=== PATIENT | female | born 1990 | race Caucasian/White ===

== ENCOUNTER → 2016-09-11 | Outpatient (CLI) | payer MEDICAID ==
[~2016-09-11] MED LIST: ALEVE220 MG PO; AMOXICOT500 MG PO; ATIVAN GENERIC 11 MG PO; BENADRYL25 M1 PO; BENTYL20 M1 PO; BENTYL20 MG PO; CLONIDINE HYDR0.1 MG PO; GABAPENTIN100 M1 PO; HYDROCODONE-APA1 TA2 PO; IMODIUM 2MG. CAP2 MG PO; KEFLEX 500MG.500 MG PO; MEDROL 4MG. DOSE4 MG PO; MELATONIN10 M2 PO; MELOXICAM7.5 MG PO; MINOCYCLINE 10100 MG PO; MOTRIN 600MG.600 MG PO; NICOTINE PATCH;21 MG TD; NORCO 325 MG-51 TAB PO; SULFAMETHOXAZOL1 TA6 PO; TYLENOL W/CODEI1 TA2 PO; ZOFRAN ODT4 MG PO
[2016-09-11 19:20] LABS: AMPHETAMINES/METAMPHETAMINES NEGATIVE ng/mL (<1000)
== END ==
LOC: LAB 17:46
PROVIDERS: Emergency Medicine
DX: Z79.899 Other long term (current) drug therapy (principal)

== ENCOUNTER 2017-05-01 06:38 | Emergency (ER) | payer MEDICAID ==
[~2017-05-01] VITALS: Ht 152.4 cm; Wt 51.3 kg
--- NOTE | 2017-05-01 06:56 | Emergency Room Report ---
History of Present Illness Time Seen by 06Vijaya Presenting Problem in Triage Pt arrived:Walked Presenting Problem:C/O RED SWOLLEN AREA TO RIGHT KNEE SINCE 04/26/17. 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 N Clinical Suspician of Infection? N Mental Status: 1 - Regular (Normal Baseline) Sepsis Risk:Low Sepsis Risk Have you (or family members/close friends) recently traveled outside the [place]? N If Yes, where/when: Have you had exposure to infectious disease within the past month? N TB? Other? Specify: Source patient, RN notes reviewed, family, old records Exam Limitations no limitations Comment reddned tender area on rt lower leg over the last few days Cardiac Chest Pain Chest pain indicative of cardiac No Timing/Duration this morning Severity moderate ALLERGIES Coded Allergies: No Known Allergies (05/19/16) Home Medications Active Scripts Dicyclomine HCl (Bentyl) 20 MG PO Q6HP PRN crampys #30 TAB Ref 1 Prov: 05/21/16 History Medical History General CAD? No Angina: No [place]: No Hypertension? No Hyperlipidemia? No CHF? No DVT? No PE? No COPD? No Asthma? No Anemia? No GERD? No Gastric ulcers? No GI Bleed? No Hernia? No Thyroid Problems? No Hypothyroidism? No CVA? No Seizures? No Diabetes? No Renal Insuffiency? No End Stage Renal Disease? No UTI? Yes Stones? No BPH? No GB Disease: No Nephritic Syndrome? No Asplenia? No Hepatitis? No Sickle Cell Disease? No Arthritis? No Migraines? No Cataracts? No Glaucoma? No MRSA? No HIV? No TB? No Anxiety? No Depression? No Cancer? No Site: COLITIS More? 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 Respiratory denies cough, denies shortness of breath Cardiovascular denies chest pain, denies syncope Gastrointestinal denies abdominal pain, denies diarrhea, denies vomiting Genitourinary denies: dysuria, frequency, hesitancy, hematuria. Musculoskeletal denies back pain, denies joint pain, denies joint swelling, denies neck pain Skin see HPI, other Psychiatric/Neurological denies headache, denies seizure Physical Exam Vital Signs Vital Signs Date Time Temp Pulse Resp B/P Pulse O2 O2 Flow FiO2 Ox Delivery Rate 05/01 0643 97.9 72 20 126/65 97 - WBC >12,000 or <4,000 or 10% bands? 2 or more SIRS Criteria Met? B/P:126/65 MAP:85 Creatinine >2.0? UA output<0.5ml/kg/hr for 2 hrs? Platelet count >100,000? Lactate >2.0mmol/1? INR >1.2 or PTT > than 60 sec? Evidence of Organ Dysfunction? Provider documented clinical suspician of infection? N Sepsis Criteria Count: 1 Sepsis Risk: Low Sepsis Risk General Appearance no apparent distress Eye Exam - bilateral eye PERRL, bilateral eye EOMI Ear, Nose, Throat normal ENT inspection Neck supple Respiratory Status No: respiratory distress. 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 No Results/Orders Orders Procedure Date/time Status CULTURE, WOUND 05/01 0704 Active Departure Departure Time of Disposition 07 Disposition DC Home or Self Care(routine) Clinical Impression Primary Impression: Cellulitis Qualifiers: Site of cellulitis: extremity Site of cellulitis of extremity: lower extremity Laterality: right Qualified Code: L03.115 - Cellulitis of right lower limb Condition STABLE Referrals Moshe AMADOR,Taran Barnard (Family) Patient Instructions DI for Methicillin-Resistant Staph Infection (MRSA) Additional Instructions use meds and see pcp for follow up Discharge Counseling Counseled pt/family regarding diagnosis, medications/RX, follow up needs Prescriptions Current Visit Scripts MUPIROCIN 2% (Bactroban Oint) 1 ERNESTO TP BID #1 TUBE SULFAMETHOXAZOLE/TRIMETHOPRIM (Sulfamethoxazole-Tmp Ds Tablet) 1 TAB PO BID #20 TAB ED Critical Care Critical Care No at 0708
--- NOTE | 2017-05-01 06:56 | Emergency Room Report ---
History of Present Illness Time Seen by 06Vijaya Presenting Problem in Triage Pt arrived:Walked Presenting Problem:C/O RED SWOLLEN AREA TO RIGHT KNEE SINCE 04/26/17. 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 N Clinical Suspician of Infection? N Mental Status: 1 - Regular (Normal Baseline) Sepsis Risk:Low Sepsis Risk Have you (or family members/close friends) recently traveled outside the [place]? N If Yes, where/when: Have you had exposure to infectious disease within the past month? N TB? Other? Specify: Source patient, RN notes reviewed, family, old records Exam Limitations no limitations Comment reddned tender area on rt lower leg over the last few days Cardiac Chest Pain Chest pain indicative of cardiac No Timing/Duration this morning Severity moderate ALLERGIES Coded Allergies: No Known Allergies (05/19/16) Home Medications Active Scripts Dicyclomine HCl (Bentyl) 20 MG PO Q6HP PRN crampys #30 TAB Ref 1 Prov: 05/21/16 History Medical History General CAD? No Angina: No [place]: No Hypertension? No Hyperlipidemia? No CHF? No DVT? No PE? No COPD? No Asthma? No Anemia? No GERD? No Gastric ulcers? No GI Bleed? No Hernia? No Thyroid Problems? No Hypothyroidism? No CVA? No Seizures? No Diabetes? No Renal Insuffiency? No End Stage Renal Disease? No UTI? Yes Stones? No BPH? No GB Disease: No Nephritic Syndrome? No Asplenia? No Hepatitis? No Sickle Cell Disease? No Arthritis? No Migraines? No Cataracts? No Glaucoma? No MRSA? No HIV? No TB? No Anxiety? No Depression? No Cancer? No Site: COLITIS More? 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 Respiratory denies cough, denies shortness of breath Cardiovascular denies chest pain, denies syncope Gastrointestinal denies abdominal pain, denies diarrhea, denies vomiting Genitourinary denies: dysuria, frequency, hesitancy, hematuria. Musculoskeletal denies back pain, denies joint pain, denies joint swelling, denies neck pain Skin see HPI, other Psychiatric/Neurological denies headache, denies seizure Physical Exam Vital Signs Vital Signs Date Time Temp Pulse Resp B/P Pulse O2 O2 Flow FiO2 Ox Delivery Rate 05/01 0643 97.9 72 20 126/65 97 - WBC >12,000 or <4,000 or 10% bands? 2 or more SIRS Criteria Met? B/P:126/65 MAP:85 Creatinine >2.0? UA output<0.5ml/kg/hr for 2 hrs? Platelet count >100,000? Lactate >2.0mmol/1? INR >1.2 or PTT > than 60 sec? Evidence of Organ Dysfunction? Provider documented clinical suspician of infection? N Sepsis Criteria Count: 1 Sepsis Risk: Low Sepsis Risk General Appearance no apparent distress Eye Exam - bilateral eye PERRL, bilateral eye EOMI Ear, Nose, Throat normal ENT inspection Neck supple Respiratory Status No: respiratory distress. 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 No Results/Orders Orders Procedure Date/time Status CULTURE, WOUND 05/01 0704 Active Departure Departure Time of Disposition 07 Disposition DC Home or Self Care(routine) Clinical Impression Primary Impression: Cellulitis Qualifiers: Site of cellulitis: extremity Site of cellulitis of extremity: lower extremity Laterality: right Qualified Code: L03.115 - Cellulitis of right lower limb Condition STABLE Referrals Moshe AMADOR,Taran Barnard (Family) Patient Instructions DI for Methicillin-Resistant Staph Infection (MRSA) Additional Instructions use meds and see pcp for follow up Discharge Counseling Counseled pt/family regarding diagnosis, medications/RX, follow up needs Prescriptions Current Visit Scripts MUPIROCIN 2% (Bactroban Oint) 1 ERNESTO TP BID #1 TUBE SULFAMETHOXAZOLE/TRIMETHOPRIM (Sulfamethoxazole-Tmp Ds Tablet) 1 TAB PO BID #20 TAB ED Critical Care Critical Care No at 0708
[2017-05-01] MEDS ORDERED: BACTROBAN2% TP (07:08)
[2017-05-01] MEDS ORDERED: SEPTRA DS 800 M1 TAB PO (07:08)
[2017-05-01 07:20] VITALS: BP 126/65
== END 2017-05-01 07:20 | disposition home or self-care (01) ==
LOC: ER 06:38
DX: L03.115 Cellulitis of right lower limb (principal)

== ENCOUNTER 2017-05-04 19:13 | Emergency (ER) | payer MEDICAID ==
[~2017-05-04] VITALS: Ht 152.4 cm; Wt 51.3 kg
[~2017-05-04 19:13] MED LIST changes: +BACTROBAN2% TP; +SEPTRA DS 800 M1 TAB PO
--- NOTE | 2017-05-04 19:42 | Urgent Treatment Center Report ---
History of Present Issue Date/Time Seen by Provider 05/04/171934 Visit Reason Pt arrived:Walked Presenting Problem:PT WAS SEEN IN ER SUNDAY FOR AREA ON LEFT KNEE. STATES SHE IS AFRAID INFECTION IS SPREADING Location if Accident: Onset of symptoms date/time:/ or onset unknown for:MEDICAL HX UNKNOWN Have you (or family members/close friends) recently traveled outside the [place]? N If Yes, where/when: Have you had exposure to infectious disease within the past month? TB? Other? Specify: Patient state that she was seen in the ER on Sunday for infection on her right knee area and wound culture was obtained and sent State that she is afraid that the infection is spreading State thats she has also not got the results from her culture to make sure that she is on the right medication ALLERGIES Coded Allergies: No Known Allergies (05/19/16) Home Medications Active Scripts MUPIROCIN 2% (Bactroban Oint) 1 ERNESTO TP BID #1 TUBE Prov: 05/01/17 SULFAMETHOXAZOLE/TRIMETHOPRIM (Sulfamethoxazole-Tmp Ds Tablet) 1 TAB PO BID #20 TAB Prov: 05/01/17 Dicyclomine HCl (Bentyl) 20 MG PO Q6HP PRN crampys #30 TAB Ref 1 Prov: 05/21/16 History Medical History General CAD? No Angina: No [place]: No Hypertension? No Hyperlipidemia? No CHF? No DVT? No PE? No COPD? No Asthma? No Anemia? No GERD? No Gastric ulcers? No GI Bleed? No Hernia? No Thyroid Problems? No Hypothyroidism? No CVA? No Seizures? No Diabetes? No Renal Insuffiency? No UTI? Yes Stones? No BPH? No GB Disease: No Nephritic Syndrome? No Asplenia? No Hepatitis? Yes Sickle Cell Disease? No Arthritis? No Migraines? No Cataracts? No Glaucoma? No MRSA? No HIV? No TB? No Anxiety? No Depression? No Cancer? No Site: COLITIS More? 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 Family History Family HX Diabetes Yes CAD No Hypertension Yes Hyperlipidemia No Cancer Yes TB No Social History Smoking Hx Smoker: Current Every Day Smoker Tobacco: Yes Type Cigarettes Packs/day 1 1/2 - 2 Packs Alcohol Alcohol: Yes Review of Systems All Other Systems Reviewed and Negative Comment small red raised area on right knee Physical Exam Vital Signs Vital Signs Date Time Temp Pulse Resp B/P Pulse O2 O2 Flow FiO2 Ox Delivery Rate 05/04 1929 98.7 107 20 116/72 96 General Appearance normal appearance, WD/WN, no apparent distress Respiratory Status Yes: trachea midline, chest symmetrical, non tender chest. No: respiratory distress. 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 no warmth, no streaks, no redness Medical Decision Making LABS/Meds/Orders Pt receiving controlled substance in ED? No Progress [facility] Progress Notes Comment discussed culture results with patient and informed her that she was on right medication and that she needed to continue taking medication as previously prescribed Departure Departure Time of Disposition 1940 Disposition DC Home or Self Care(routine) Clinical Impression Primary Impression: Staph infection Condition STABLE Referrals Moshe AMADOR,Taran Barnard (Family) Patient Instructions DI for Staph Infection, Staph Infection Additional Instructions Take medication as prescribed Follow up with family doctor Return if needed Discharge Counseling Counseled pt/family regarding diagnosis, test results, medications/RX, home care, follow up needs at 1942
--- NOTE | 2017-05-04 19:42 | Urgent Treatment Center Report ---
History of Present Issue Date/Time Seen by Provider 05/04/171934 Visit Reason Pt arrived:Walked Presenting Problem:PT WAS SEEN IN ER SUNDAY FOR AREA ON LEFT KNEE. STATES SHE IS AFRAID INFECTION IS SPREADING Location if Accident: Onset of symptoms date/time:/ or onset unknown for:MEDICAL HX UNKNOWN Have you (or family members/close friends) recently traveled outside the [place]? N If Yes, where/when: Have you had exposure to infectious disease within the past month? TB? Other? Specify: Patient state that she was seen in the ER on Sunday for infection on her right knee area and wound culture was obtained and sent State that she is afraid that the infection is spreading State thats she has also not got the results from her culture to make sure that she is on the right medication ALLERGIES Coded Allergies: No Known Allergies (05/19/16) Home Medications Active Scripts MUPIROCIN 2% (Bactroban Oint) 1 ERNESTO TP BID #1 TUBE Prov: 05/01/17 SULFAMETHOXAZOLE/TRIMETHOPRIM (Sulfamethoxazole-Tmp Ds Tablet) 1 TAB PO BID #20 TAB Prov: 05/01/17 Dicyclomine HCl (Bentyl) 20 MG PO Q6HP PRN crampys #30 TAB Ref 1 Prov: 05/21/16 History Medical History General CAD? No Angina: No [place]: No Hypertension? No Hyperlipidemia? No CHF? No DVT? No PE? No COPD? No Asthma? No Anemia? No GERD? No Gastric ulcers? No GI Bleed? No Hernia? No Thyroid Problems? No Hypothyroidism? No CVA? No Seizures? No Diabetes? No Renal Insuffiency? No UTI? Yes Stones? No BPH? No GB Disease: No Nephritic Syndrome? No Asplenia? No Hepatitis? Yes Sickle Cell Disease? No Arthritis? No Migraines? No Cataracts? No Glaucoma? No MRSA? No HIV? No TB? No Anxiety? No Depression? No Cancer? No Site: COLITIS More? 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 Family History Family HX Diabetes Yes CAD No Hypertension Yes Hyperlipidemia No Cancer Yes TB No Social History Smoking Hx Smoker: Current Every Day Smoker Tobacco: Yes Type Cigarettes Packs/day 1 1/2 - 2 Packs Alcohol Alcohol: Yes Review of Systems All Other Systems Reviewed and Negative Comment small red raised area on right knee Physical Exam Vital Signs Vital Signs Date Time Temp Pulse Resp B/P Pulse O2 O2 Flow FiO2 Ox Delivery Rate 05/04 1929 98.7 107 20 116/72 96 General Appearance normal appearance, WD/WN, no apparent distress Respiratory Status Yes: trachea midline, chest symmetrical, non tender chest. No: respiratory distress. 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 no warmth, no streaks, no redness Medical Decision Making LABS/Meds/Orders Pt receiving controlled substance in ED? No Progress [facility] Progress Notes Comment discussed culture results with patient and informed her that she was on right medication and that she needed to continue taking medication as previously prescribed Departure Departure Time of Disposition 1940 Disposition DC Home or Self Care(routine) Clinical Impression Primary Impression: Staph infection Condition STABLE Referrals Moshe AMADOR,Taran Barnard (Family) Patient Instructions DI for Staph Infection, Staph Infection Additional Instructions Take medication as prescribed Follow up with family doctor Return if needed Discharge Counseling Counseled pt/family regarding diagnosis, test results, medications/RX, home care, follow up needs at 1942
[2017-05-04 19:44] VITALS: BP 116/72
== END 2017-05-04 19:46 | disposition home or self-care (01) ==
LOC: UTC 19:13
DX: L08.9 Local infection of the skin and subcutaneous tissue, unspecified (principal); B95.8 Unspecified staphylococcus as the cause of diseases classified elsewhere; F17.210 Nicotine dependence, cigarettes, uncomplicated

== ENCOUNTER 2017-05-07 17:07 | Emergency (ER) | payer MEDICAID ==
[~2017-05-07] VITALS: Ht 152.4 cm; Wt 51.3 kg
--- NOTE | 2017-05-07 19:02 | Urgent Treatment Center Report ---
History of Present Issue Date/Time Seen by Provider 05/07/17 1901 Visit Reason Pt arrived:Walked Presenting Problem:PT HAS HAD AN ABCESS ON HER RT KNEE X1 WEEK AND IS CURRENTLY ON BACTRIM. PT IS C/O WORSENING AND A RED STREAK UP THE RT THIGH Location if Accident: Onset of symptoms date/time:/ or onset unknown for:MEDICAL HX UNKNOWN Have you (or family members/close friends) recently traveled outside the [place]? N If Yes, where/when: Have you had exposure to infectious disease within the past month? TB? Other? Specify: c/o worsening redness and pain right anterior knee now with right knee swelling and red streak extending to right groin. Pt was seen in ER by PCP, Dr. Mesa, on 05/01. Dx abscess right knee. I&D. wound cx sent. Started on mupirocin ointment and bactrim. Returned to [facility] on 05/04 for wound care follow up and cx results. + Staph aureas susceptible to bactrim. Exam at that time "quarter size " and appeared to be improving. Enc. to complete bactrim. However last 48 hours, abscess getting larger, redness worse, right knee swollen and now red streaking extending proximally from knee up anterior thigh stopping at right groin. Amount of drainage from abscess has increased. "continous odell bloody drainage. I see thick white but it hasn't drained." Denies fever, aches, chills. Source patient Exam Limitations no limitations ALLERGIES Coded Allergies: No Known Allergies (05/19/16) Home Medications Active Scripts MUPIROCIN 2% (Bactroban Oint) 1 ERNESTO TP BID #1 TUBE Prov: 05/01/17 SULFAMETHOXAZOLE/TRIMETHOPRIM (Sulfamethoxazole-Tmp Ds Tablet) 1 TAB PO BID #20 TAB Prov: 05/01/17 Dicyclomine HCl (Bentyl) 20 MG PO Q6HP PRN crampys #30 TAB Ref 1 Prov: 05/21/16 History Medical History General CAD? No Angina: No ND: No Hypertension? No Hyperlipidemia? No CHF? No DVT? No PE? No COPD? No Asthma? No Anemia? No GERD? No Gastric ulcers? No GI Bleed? No Hernia? No Thyroid Problems? No Hypothyroidism? No CVA? No Seizures? No Diabetes? No Renal Insuffiency? No UTI? Yes Stones? No BPH? No GB Disease: No Nephritic Syndrome? No Asplenia? No Hepatitis? Yes Sickle Cell Disease? No Arthritis? No Migraines? No Cataracts? No Glaucoma? No MRSA? No HIV? No TB? No Anxiety? No Depression? No Cancer? No Site: COLITIS More? No Immunization HX DT/Tetanus UNKNOWN Flu Refused Pneumonia Refuses Surgical Hx Previous Surgery?Y BILATERAL EARTUBES TEETH CERVICAL ABLASION Family History Family HX Diabetes Yes CAD No Hypertension Yes Hyperlipidemia No Cancer Yes TB No Social History Smoking Hx Smoker: Current Every Day Smoker Tobacco: Yes Type Cigarettes Packs/day 1 1/2 - 2 Packs Alcohol Alcohol: Yes Review of Systems All Other Systems Reviewed and Negative Constitutional see HPI, denies malaise Musculoskeletal see HPI Skin see HPI Physical Exam Vital Signs Vital Signs Date Time Temp Pulse Resp B/P Pulse O2 O2 Flow FiO2 Ox Delivery Rate 05/07 2050 98.2 92 18 125/87 98 05/07 1734 98.2 92 18 125/87 98 General Appearance normal appearance, no apparent distress Respiratory Status No: respiratory distress. Cardiovascular no peripheral edema Peripheral Pulses Pulses normal Yes (DP/PT) Back gait abnormality (limp favoring rt ) Extremities limited range of motion (minimal reduction rt knee flex), swelling ( right anterior knee), mild tenderness generalized throughout rt knee but worse lateral lower aspect/location abscess Strength 5 Lower Ext (L), 5 Lower Ext (R) Neurologic alert Skin approx 2cm cutaneous abscess right anterior knee, lower lateral. 1mm open center, thin odell drainage. surrounding erythema covering entire anterior knee w/ red streak extending medial aspect anterior thigh stopping at right anterior groin, tender but no palpable lymphadenopathy Lymphatic no adenopathy Medical Decision Making LABS/Meds/Orders Pt receiving controlled substance in ED? No Results/Orders Laboratory Tests 05/07/171918: WBC 9.8, RBC 4.75, Hgb 14.0, Hct 41.4, MCV 87.0, RDW 12.5, Plt Count 251, MPV 6.8 L, Gran % 59.1, Gran # 5.8, Lymphocytes % 34.5, Monocytes % 4.2, Eosinophils % 2.0, Basophils % 0.3, Lymphocytes # 3.4, Monocytes # 0.4, Eosinophils # 0.2, Basophils # 0.0, PUBS MCHC 33.7, MCH 29.3 Current Medication Orders Sig/Marylou Start time Last Medication Dose Route Stop Time Status Admin Clindamycin Phosphate 0 .STK-MED ONE 05/07 2043 DC .ROUTE Clindamycin Phosphate 450 MG ONCE ONE 05/07 2030 DC 05/07 IM 05/07 Orders Procedure Date/time Status KNEE-3 VIEWS-RT 05/07 1915 Active CULTURE, WOUND 05/07 1915 Active C-REACTIVE PROTEIN 05/07 1915 Complete CBC WITH AUTO DIFF 05/07 1915 Complete XRAY/CT/US XRAY/CT/US XRAY knee (right) XR interpretation by reviewed by me (w/ Dr. Mesa, ER MD/PCP) Xray Results normal/NAD Consult MD Physician Consult 1 Consult/PCP ROSITA Alexandre Time Called 1909 Reason Pt. Condition Comments Discussed HPI and exam. Agrees repeat wound culture, add susceptible antibiotic, rule out joint infection w/ CBC, CRP and xray. FU with ortho or PCP tomorrow. Physician Consult 2 Consult/PCP Dr. Mesa, PCP and current ER MD Time Called 2019 Reason Pt. Condition (and to review xray) Comments Discussed HPI, current exam, labs, rvwd xray together. Wants to see pt in morning at office at 9am. no further treatment necessary tonight unless I want to give first dose of another antibiotic. Progress [facility] Progress Notes Date 05/07/17 Time 192 Comment lab and xray at Procedures Incision and Drainage Incision and Drainage Risks/benefits discussed with pt/guardian? Yes Problem type Abcess Location right anterior knee Size cm 2.0 Progress no further incision required, approx 1mm opening in center, draining slowly serosang drainage, w/ palpation moderate amount serosang drainage w/ occasional scant thick white; Departure Departure Time of Disposition 2024 Disposition DC Home or Self Care(routine) Clinical Impression Primary Impression: Abscess of right knee Secondary Impressions: Cellulitis Qualifiers: Site of cellulitis: extremity Site of cellulitis of extremity: lower extremity Laterality: right Qualified Code: L03.115 - Cellulitis of right lower limb Condition STABLE Referrals Moshe AMADOR,Taran Barnard (Family) per Dr. Mesa, show up at office at 9am. Tell them you were seen in [facility] this evening, I spoke to Dr. Mesa, he told you to be there at 9am. Patient Instructions DI for Cellulitis -- Adult, DI for Skin Abscess Additional Instructions * Warm compresses x15 minutes tonight * gently express drainage as needed * Monitor Temp. Tylenol every 4 hours as needed and/or ibuprofen every 6 hours as needed (as long as your primary care doctor has told you that it is ok to take both) for fever/aches/pain. * Dr. Mesa's office at 9am tomorrow morning. Discharge Counseling Counseled pt/family regarding diagnosis, test results, medications/RX, home care, follow up needs at [phone]
[2017-05-07 19:41] LABS: LYMPH # 3.4 K/mm3 (0.7-4.5); LYMPH % 34.5 % (10-50.0)
[2017-05-07 20:50] VITALS: BP 125/87
--- NOTE | 2017-05-08 04:55 | RADIOLOGY REPORT PS360 ---
KNEE-3 VIEWS-RT HISTORY: Knee pain abscess right knee, + staph, worsening, now knee pain ORDERING PHYSICIAN: LORA FRANCOIS APRN PATIENT AGE: 27 years COMPARISON: None FINDINGS: No fracture or dislocation. No lytic or blastic change. Normal mineralization. No significant arthritic changes evident. No other significant findings IMPRESSION: Negative Knee
--- OUTSIDE RECORDS SUMMARY | 2017-05-30 06:30 | External Medical Summary Rpt ---
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 [facility] MAMMOGRAP IMAGING HY INCL ASS CAD WHEN PERF; UNI AMB [id number] [facility] SERVICE 6 AMBULANCE AMBULANCE ALS SERVICE SERVICE EMERGENCY TRANSPORT LEVEL 1 GROUND A0425 [facility] MILEAGE 6 AMBULANCE AMBULANCE PER SERVICE SERVICE STATUTE MILE RADIOLOGI 47751 [place] ALL C EXAM 6 MEDICAL CHEST 2 IMAGING VIEWS ASS FRONTAL&L ATERAL CYTP C/V 60588 [facility], PICKLESIM AUTO THIN 6 LLC ER JR JEANINE L[place] [address] [place] TRANSVAGI 6 MEDICAL VASYL NAL IMAGING ASS COLLECTIO 42832 [facility] N VENOUS 6 [facility] BLOOD INC INC VENIPUNCT URE THYROID 55337 [facility] HORM 6 [facility] UPTK/THYR INC INC OID HORMONE BINDING RATIO BLOOD 84848 [facility] COUNT 6 [facility] COMPLETE INC INC AUTO&[place] [address] [facility] THYROXINE 6 [facility] [place] [address] [facility] THYROID [address] [facility] STIMULATI INC INC NG HORMONE TSH RADIOLOGI 86109 [place] ALL C EXAM 6 MEDICAL CHEST 2 IMAGING VIEWS ASS FRONTAL&L ATERAL SUSCEPTIB 72855 [facility] LTY STDY 6 [facility] ANTIMICRB INC INC IAL MICRO/[place] [address] [facility] STREPTOCO [address] [facility] CCUS INC INC GROUP A CUL BACT 25269 [facility] XCPT [address] [facility] URINE INC INC BLOOD/STO OL AEROBIC ISOL CUL BACT 16911 [facility] AEROBIC [address] [facility] ADDL INC INC METHS DEFINITIV E EA ISOL URNLS DIP 46521 [facility] [address] [facility] STICK/TAB INC INC LET REAGENT AUTO MICROSCOP Y URINE 18037 [facility] 6 [facility] TEST INC INC VISUAL COLOR CMPRSN METHS US BREAST 23089 [facility] UNI REAL 5 [facility] TIME INC INC WITH IMAGE COMPLETE US BREAST 56274 [place] UNI REAL 5 MEDICAL VASYL TIME IMAGING WITH ASS IMAGE LIMITED URINE 49056 [facility] 5 [facility] VISUAL COLOR CMPRSN METHS CULTURE 10303 [facility] BACTERIAL 5 [facility] INC INC QUANTTATI VE COLONY COUNT URINE CULTURE 08597 [facility] BCT [address] [facility] ISOL&PRSM INC INC PTV ID ISOLATE EA URINE SUSCEPTIB 60464 [facility] LTY STDY 5 [facility] ANTIMICRB INC INC IAL MICRO/[place] [address] [facility] [place] GENTILE ABDOMEN & 5 RADIOLOGY LUTHER PELVIS W/CONTRAS T MATERIAL US BREAST 97960 [place] ALL UNI REAL 5 MEDICAL TIME IMAGING WITH ASS IMAGE LIMITED US BREAST 69276 [facility] UNI REAL 5 [facility] [place] [address] [facility] SPE[facility]ARCIA THORACIC 5 MEDICAL V[facility]YL SPINE W/O IMAGING CONTRAST ASS MATERIAL RADIOLOGI 92028 [place] C 5 MEDICAL VASYL EXAMINATI IMAGING ON PELVIS ASS 1/[address] LUMBAR 75823 [place] [facility] SPINE 5 MEDICAL VASYL W/O IMAGING CONTRAST ASS MATERIAL RADIOLOGI 96635 [place] [facility] C EXAM 5 MED[facility] V[facility]YL CHEST 2 IMAGING VIEWS ASS FRONTAL&[place] [address] [place] CERVICAL 5 MEDICAL VASYL SPINE W/O IMAGING [place] [address] [facility], PICKLESIM SURG 5 LLC ER [facility] PATHOLOGY GROSS&KATALINA ROSCOPIC EXAM COLPOSCOP 55830 [facility] GARCIA Y CERVIX 5 PHYSICIAN LIZZETTE VAG ELTRD S GROUP CONIZATIO N CERVIX URINE 47165 [facility] GARCIA 5 PHYSICIAN LIZZETTE TEST S GROUP VISUAL COLOR CMPRSN METHS URINE 09436 [facility] TEST [facility] DEPT [facility] DEPT VISUAL NEFTALI NEFTALI COLOR CMPRSN METHS IADNA 73644 [facility] CHLAMYDIA 5 [facility] DEPT TH DEPT TRACHOMAT NEFTALI NEFTALI IS AMPLIFIED PROBE TQ IADNA 01465 [facility] NEISSERIA 5 [facility] DISTRICT [facility] DEPT TH DEPT GONORRHOE NEFTALI NEFTALI AE AMPLIFIED PROBE TQ IADNA 28204 [facility] ALEMANON NEISSERIA 5 [facility] INC INC GONORRHOE AE AMPLIFIED PROBE TQ IADNA 60096 [facility] CHLAMYDIA 5 [facility] INC INC TRACHOMAT [place] [address] [facility], ZANA TER SURG 5 LLC PATHOLOGY [place] [address] [facility], ZANA TER SURG 5 LLC PATHOLOGY GROSS&KATALINA ROSCOPIC EXAM COLPOSCOP 63063 [facility] GARCIA Y CERVIX 5 PHYSICIAN LIZZETTE BX CERVIX S GROUP & ENDOCRV CURRETAGE SUSCEPTIB 64830 [facility] LTY STDY 5 [facility] ANTIMICRB INC INC IAL MICRO/AGA R DILUTJ CULTURE 90544 [facility] BACTERIAL 5 [facility] INC INC QUANTTATI VE COLONY COUNT URINE CULTURE 49309 [facility] BCT [address] [facility] ISOL&PRSM INC INC PTV ID ISOLATE EA URINE URINE 17930 [facility] 5 PHYSICIAN PHYSICIAN TEST S GROUP S GROUP VISUAL COLOR CMPRSN METHS URINE 86092 [facility] 5 [facility] DISTRICT TEST [facility] DEPT VISUAL NEFTALI NEFTALI COLOR CMPRSN METHS CONTRACEP A4267 [facility] TIVE [facility] SUPPLY [facility] DEPT CONDOM NEFTALI NEFTALI MALE EACH INJECTION J1050 [facility] 5 [facility] MEDROXYPR [facility] DEPT OGESTERON NEFTALI NEFTALI E ACETATE 1 MG CYTP 66470 [facility], BRE CERV/VAG 5 LLC KAI AUTO THIN LAYER PREP MNL SCREEN IADNA 26318 [facility] DEPT TRACHOMAT NEFTALI NEFTALI IS AMPLIFIED PROBE TQ CYTP 09342 [facility], [facility] CERVICAL/ 5 LLC KAI VAGINAL REQ INTERP PHYSICIAN IADNA 71233 [facility]IA [facility] DEPT GONORRHOE NEFTALI NEFTALI AE AMPLIFIED PROBE TQ RADEX 44947 [place] [facility] HAND 5 MEDICAL VASYL MINIMUM 3 IMAGING VIEWS ASS US BREAST 73241 [facility] REAL [address] [facility] TIME INC INC W/IMAGE DOCUMENTA TION MRI 13311 ACUNA TRA ACUNA TRA SPINAL 4 CANAL LUMBAR W/O CONTRAST MATERIAL APPLICATI 88839 [facility] ON 4 [facility] MODALITY MANOJ MANOJ 1/> AREAS HOT/COLD PACKS THERAPEUT [address] IC PX 1/> 4 [facility] MANOJ MANOJ EACH 15 MIN EXERCISES THERAPEUT [address] [facility] IC PX 1/> 4 [facility] MANOJ MANOJ EACH 15 MIN EXERCISES APPLICATI [address] ON 4 [facility] MANOJ 1/> AREAS HOT/COLD PACKS THERAPEUT [address] [facility] IC PX 1/> 4 [facility] MANOJ MANOJ EACH 15 MIN EXERCISES APPLICATI [address] [facility] [facility] 4 [facility] MANOJ MANOJ 1/> AREAS HOT/COLD PACKS THERAPEUT [address] IC PX 1/> 4 [facility] MANOJ MANOJ EACH 15 MIN EXERCISES THERAPEUT [address] IC PX 1/> 4 [facility] MANOJ MANOJ EACH 15 MIN EXERCISES APPLICATI [address] ON 4 [facility] MODALITY MANOJ MANOJ 1/> AREAS HOT/COLD PACKS APPLICATI [address] [facility] ON 4 [facility] MODALITY MANOJ MANOJ 1/> AREAS HOT/COLD PACKS PHYSICAL [address] [facility] THERAPY 4 [facility] EVALUATIO MANOJ MANOJ N THERAPEUT [address] IC PX 1/> 4 [facility] MANOJ MANOJ EACH 15 MIN EXERCISES RADEX 87942 [facility] [place] WRIST 4 MAR MAR COMPLETE MINIMUM 3 VIEWS RADEX 34499 AMBER AMBER HAND 4 MAR MAR MINIMUM 3 VIEWS RADEX 94343 [facility] SACRUM & 4 [facility] COCCYX INC INC MINIMUM 2 VIEWS RADEX 43400 [facility] SPINE 4 [facility] LUMBOSACR INC INC AL MINIMUM 4 VIEWS RADIOLOGI 01761 [facility] C 4 [facility] EXAMINATI INC INC ON PELVIS 1/2 VIEWS HEMOGLOBI 51823 [facility] N 4 [facility] GLYCOSY[place] [address] [facility] THYROID 4 [facility] STIMULATI INC INC NG HORMONE TSH BLOOD 23565 [facility] COUNT 4 [facility] COMPLETE INC INC AUTO&AUTO DIFRNTL WBC LIPID 28037 [facility] PANEL 4 [facility] INC INC GONADOTRO 24375 [facility] PIN 4 [facility] CHORIONIC [place] [address] [facility] THYROXINE 4 [facility] TOTAL INC INC COMPREHEN 92114 [facility] SIVE 4 [facility] METABOLIC INC INC PANEL SEDIMENTA 89897 [facility] TION RATE 4 [facility] RBC INC INC NON-AUTOM ATED RADEX 59570 ROSARIO ROSARIO FINGR 3 III HENRIQUE III HENRIQUE MINIMUM 2 VIEWS BLOOD 71235 [facility] COUNT 0 [facility] COMPLETE INC INC AUTO&[place] [address] [facility] THYROXINE 0 [facility] TOTAL INC INC SEDIMENTA 52381 [facility] TION RATE 0 [facility] RBC INC INC NON-AUTOM ATED DEMO&/MACRINA 71273 GALA CEDEÑO, L OF PT 0 GILES B GILES B UTILIZ AERSL GEN/NEB/I NHLR/IP ANTINUCLE 44483 [facility] AR 0 [facility] ANTIBODIE INC INC S SUZETTE ANTIBODY 27677 [facility] HELICOBAC 0 [facility] TER INC INC PYLORI BRNCDILAT 33121 GALA CEDEÑO, RSPSE 0 GILES B GILES B SPMTRY PRE&POST- BRNCDILAT ADMN RHEUMATOI 22013 [facility] D FACTOR 0 [facility] QUANTITAT [place] [address] [facility]AR[facility] THYROID 0 [facility] STIMULATI INC INC NG HORMONE TSH MICROSOMA 75883 [facility] L 0 [facility] ANTIBODIE INC INC S EACH THER 53404 JAMEL MCCULLOUGH PROPH/DX 0 , [facility] COOPER NJX IV W W PUSH SINGLE/1S T SBST/DRUG DEEP D9220 JAMEL FERNANDEZERSON SEDATION/ 0 , ALLISON COOPER GENERAL W W ANESTHESI A-1ST 30 MINUTES ORTHOPANT 66401 MCCULLOUGH MCCULLOUGH OGRAM 0 , ALLISON COOPER W W SUSCEPTIB 81943 [facility] LTY STDY 9 [facility] ANTIMICRB INC INC IAL MICRO/AGA R DILUTJ CULTURE 34385 [facility] BACTERIAL 9 [facility] INC INC QUANTTATI VE COLONY COUNT URINE CULTURE 55103 [facility] BCT 9 [facility] ISOL&PRSM INC INC PTV ID ISOLATE EA URINE URNLS DIP 69342 [facility] 9 [facility] STICK/TAB INC INC LET REAGENT AUTO MICROSCOP Y URINE 74911 [facility], 9 MEDICAL VIRAL TEST GROUP VISUAL COLOR CMPRSN METHS URNLS DIP 18560 [facility], 9 MEDICAL VIRAL STICK/TAB GROUP LET RGNT AUTO W/O MICROSCOP Y CULTURE 28913 [facility] BACTERIAL 9 [facility] QUANTTATI MEDICALCE MEDICALCE VE COLONY NTER NTER COUNT URINE CUL BACT 70222 [facility] AEROBIC 9 [facility] ADDL METHS MEDICALCE MEDICALCE DEFINITIV NTER NTER E EA ISOL THERAPEUT 42240 [facility], IC 9 MEDICAL VIRAL PROPHYLAC GROUP TIC/DX INJECTION SUBQ/IM SUSCEPTIB 11650 ST LTY STDY 9 [facility] ANTIMICRB IAL MEDICALCE MEDICALCE MICRO/AGA NTER NTER R DILUTJ INJECTION J0696 [facility], 9 MEDICAL VIRAL CEFTRIAXO GROUP NE SODIUM PER 250 MG IADNA 38235 [facility] NEISSERIA 9 [facility] GONORRHOE BANK ACCT AE AMPLIFIED PROBE TQ IADNA 21658 [facility] CHLAMYDIA 9 [facility] TRACHOMAT BANK ACCT IS AMPLIFIED PROBE TQ CYTP 19166 [facility] CERV/VAG 9 [facility]ALTH AUTO THIN [facility] LAYER BANK ACCT PREP MNL SCREEN CONTRACEP A4267 [facility] MARG[facility]ITA TIVE 9 [facility] SUPPLY [facility] CONDOM BANK ACCT MALE EACH URINE 30620 [facility] [address] [facility] TEST INC INC VISUAL COLOR CMPRSN METHS CYTP C/V 78933 PATHOLOGY PATHOLOGY AUTO THIN 8 & & LYR CYTOLOGY CYTOLOGY PREPJ SCR LAB LAB MNL RESCR PHYS IADNA 44139 PATHOLOGY PATHOLOGY PAPILLOMA 8 & & VIRUS CYTOLOGY CYTOLOGY HUMAN LAB LAB AMPLIFIED PROBE TQ CYTP 58890 PATHOLOGY PATHOLOGY CERVICAL/ 8 & & VAGINAL CYTOLOGY CYTOLOGY REQ LAB LAB INTERP PHYSICIAN CYTP C/V 69480 PATHOLOGY PATHOLOGY AUTO THIN 8 & & LYR CYTOLOGY CYTOLOGY PREPJ SCR LAB LAB MNL RESCR PHYS Encounters Encounter Start End Date Code Location Performer Type Date [facility] MARGARITA - [address] [facility] OUTPATIEN PENDING SALE TO [facility] MARGARITA - 7 7 [facility] OUTPATIEN PENDING SALE TO [facility] MARGARITA - 6 6 [facility] OUTPATIEN PENDING SALE TO [facility] PERIODIC 94634 [facility] PREVENTIV 6 6 PHYSICIAN E MED EST S GROUP PATIENT 18-39 YRS HOSPITAL MARGARITA - 6 6 [facility] OUTPATIEN PEND[facility] S[facility] OFFICE 08965 [facility] OUTPATIEN 6 6 PHYSICIAN T VISIT S GROUP 25 MINUTES HOSPITAL MARGARITA - 6 6 [facility] OUTPATIEN [facility] T EMERGENCY 83413 [facility] 6 [facility] LOW/MODER SEVERITY EMERGENCY 21437 ANA DAWSON 6 6 PHYSICIAN DEPARTMEN S, [facility] T VISIT HIGH/URGE NT SEVERITY [facility]OSPITAL [facility] - 6 6 [facility] OUTPATIEN INC T EMERGENCY 66850 [facility] 6 6 [facility] DEPARTMEN INC T VISIT LIMITED/M INOR PROB EMERGENCY 04771 ANA MI [facility] 6 6 PHYSICIAN DEPARTMEN S, [facility] T VISIT MODERATE SEVERITY HOSPITAL [facility] - 5 5 [facility] OUTPATIEN INC T OFFICE 26506 MACK MEZA OUTPATIEN 5 5 MD SHAN, T VISIT [facility] 10 MINUTES EMERGENCY 66841 [facility] 5 5 [facility] - [facility] EM[facility] PAT T VISIT PHYS HIGH/URGE NT SEVERITY OFFICE 09126 MARGARITA VITALE OUTPATIEN 5 5 [facility] T VISIT HOSPITAL 15 MINUTES HOSPITAL MARG[facility]ITA - 5 5 [facility] OUTPATIEN INC T EMERGENCY 70222 [facility] 5 5 ROXANNE RUI VISIT EMERGENCY HIGH PHYS SEVERITY& THREAT FUNCJ OFFICE 98435 HAL[facility] TORREZ AN OUTPATIEN 5 5 T [facility] 30 MINUTES [facility] MARGARITA - 5 5 [facility] OUTPATIEN INC T OFFICE 18817 [facility] OUTPATIEN 5 5 [facility] T VISIT INC 10 MINUTES HOSPITAL [facility] - 5 5 [facility] OUTPATIEN INC T OFFICE 75026 [facility] OUTPATIEN 5 5 PHYSICIAN T VISIT S GROUP 15 MINUTES OFFICE 52462 [facility] 5 [facility] T VISIT [facility] DEPT [facility] DEPT 10 NEFTALI [facility] MARGARITA - 5 5 [facility] OUTPATIEN INC T HOSPITAL MARGARITA - 5 5 [facility] OUTPATIEN INC T OFFICE 29747 [facility] OUTPATIEN 5 5 PHYSICIAN KATALINA T VISIT S GROUP 15 MINUTES INITIAL 71023 [facility] PREVENTIV 5 5 [facility] DEPT [facility] DEPT MEDICINE NEFTALI BUCHANAN PT AGE 18-39YRS HOSPITAL MARGARITA - 4 4 [facility] OUTPATIEN INC T OFFICE 91461 [facility] OUTPATIEN 4 4 PHYSICIAN KATALINA T VISIT S GROUP 15 MINUTES OFFICE 06126 [facility] OUTPATIEN 4 4 PHYSICIAN KATALINA T VISIT S GROUP 15 MINUTES EMERGENCY 57483 RICHARDSO RICHARDSO 4 4 N FREDDY N FREDDY DEPARTMEN T VISIT MODERATE SEVERITY OFFICE 73466 ACU[facility] TRA ACUNA TRA OUTPATIEN 4 4 T VISIT 15 MINUTES OFFICE 40353 ACUNA TRA ACUNA TRA OUTPATIEN 4 4 T VISIT [address] - 4 4 [facility] - 4 4 [facility] OUTPATIEN [facility] EMERGENCY 35887 MEHRAN LAURENT 4 4 [facility] DEPARTMEN T VISIT MODERATE SEVERITY OFFICE 65246 ACUNA TRA ACUNA TRA CONSULTAT 4 4 ION NEW/ESTAB PATIENT 40 MIN [facility]OSPITAL M[facility] - [address] [facility] OUTPATIEN INC T HOSPITAL MARGARITA - [address] [facility] OUTPATIEN [facility] T EMERGENCY 98725 LESLIE TRO ROCK TRO 4 4 DEPARTMEN T VISIT HIGH/URGE NT SEVERITY EMERGENCY 47269 R[facility] [place] [place] TRO 4 4 DEPARTMEN T VISIT MODERATE SEVERITY OFFICE 33502 [facility] VIR OUTPATIEN 3 3 [facility] T VISIT 15 PHYSICIAN MINUTES S EMERGENCY 08244 ZAHRA SWEENEY 3 3 FABRICIO FABRICIO DEPARTMEN T VISIT HIGH/URGE NT SEVERITY EMERGENCY 32602 ELISSA FABRICIO ELISSA FABRICIO 3 3 DEPARTMEN T VISIT MODERATE SEVERITY HOSPITAL [facility] - 0 0 [facility] T OFFICE 49030 GALA, GALA, CONSULTAT 0 0 GILES B GILES B ION NEW/ESTAB PATIENT 60 MIN OFFICE 91687 CAPRI FAROOQ OUTPATIEN 0 0 DON R DON R T VISIT 15 MINUTES HOSPITAL MARGARITA - 0 0 [facility] T EMERGENCY 93063 BRE MEDINA 0 0 EMERGENCY III, [facility] SERVICES JOSE G T VISIT HIGH/URGE ASSOCIATE NT S SEVERITY EMERGENCY 49122 [facility] 0 0 [facility] T VISIT LOW/MODER SEVERITY OFFICE 72871 [facility]CCULLOUGH [facility] , ALLISON COOPER T NEW 10 W W MINUTES EMERGENCY 09946 BRE PLASENCIA, 9 9 EMERGENCY HARSHAD [facility] SERVICES O T VISIT MODERATE ASSOCIATE SEVERITY S EMERGENCY 59205 MARGARITA 9 9 [facility] T VISIT LIMITED/M INOR PROB HOSPITAL MARGARITA - 9 9 [facility] T OFFICE 68928 [facility] 9 9 MEDICAL VIRAL T VISIT GROUP 15 MINUTES EMERGENCY 83190 MAJO, 9 9 [facility] Milner [facility] MED CTR T VISIT MODERATE SEVERITY EMERGENCY [address]13 ST OSBORN, 9 9 [facility] CHANDLER [facility] MED CTR T VISIT MODERATE SEVERITY EMERGENCY 06260 9 9 [facility] T VISIT LOW/MODER SEVERITY [facility]OSPITAL ST - 9 9 [facility] ST - 9 9 [facility] NAVARRETEEN T MEDICALCE NTER OFFICE 02779 [facility] LEEANNE [facility] 9 9 MEDICAL VIRAL T VISIT GROUP 15 MINUTES PERIODIC 58433 DHS/CO MARGARITA PREVENTIV 9 9 [facility] PATIENT BANK ACCT 18-39 YRS EMERGENCY 74460 [facility], 8 8 [place] CHAVEZ [facility] MED CTR T VISIT MODERATE SEVERITY HOSPITAL M[facility]ITA - 8 8 [facility] OUTPATIEN INC T EMERGENCY [address] [facility] T VISIT MODERATE SEVERITY OFFICE 50175 [facility] 8 8 N JR, T VISIT OBSTETRIC MARLENA 10 S AND MINUTES GYNECOLOG Y OFFICE 00636 [facility] LEE[facility]NE [facility] 8 8 MEDICAL VIRAL T VISIT GROUP 15 MINUTES OFFICE 44482 CH[facility]IS CORTÉS [facility] 8 8 N JR, T VISIT OBSTETRIC MARLENA 10 S AND MINUTES GYNECOLOG Y
--- OUTSIDE RECORDS SUMMARY | 2017-05-30 06:30 | External Medical Summary Rpt ---
Author Author , NATHANIEL Valdovinos NATHANIEL Address Unknown Phone [email or web address] Care Team Providers Care Clinical Data Assistant Name Role Phone MACK TORREZ MD, PSC, Unavailable Unavailable MACK TORREZ MD, PSC ARRIAGA ALL, ARRIAGA ALL Unavailable Unavailable ROSARIO III HENRIQUE, Unavailable Unavailable ROSARIO III HENRIQUE ROSARIO III HENRIQUE, Unavailable Unavailable ROSARIO III HENRIQUE [facility] Unavailable Unavailable SERVICE, [facility] Unavailable Unavailable SERVICE, [facility] KATHY BUNDY, Unavailable Unavailable KATHY [...] FABRICIO DUFF DERRICK, DUFF DERRICK Unavailable Unavailable [facility] [place] [place] [facility] [place] FRYMAN EUG, FRYMAN Unavailable Unavailable EUG DELBERT KATALINA, DELBERT Unavailable Unavailable [facility] Unavailable [facility]available [facility] JELANI KASPER, Unavailable Unavailable JELANI KASPER, KRUPA Unavailable Unavailable [facility] Unavailable Unavailable [place] Unavailable Unavailable INC, [facility] Unavailable Unavailable HOSPITAL, [facility] ALLISON MCCULLOUGH, Unavailable Unavailable ALLISON MCCULLOUGH [facility], Unavailable Unavailable [facility] CONSTANTINE CABRERA Unavailable Unavailable [...] [facility] Unavailable Unavailable [facility]Y [facility], [facility] Unavailable Unavailable [facility], [facility] Unavailable [facility]available PHYSICIANS, [facility] MANOJ, Unavailable Unavailable [facility] PURVI LARA, Unavailable Unavailable PURVI FAROOQ [facility] # Unavailable [facility]available 4, [facility] 4 [facility] Unavailable Unavailable #591, [facility] Unavailable [facility]available [facility] Unavailable Unavailable [facility] JOSE G MEDINA III, Unavailable Unavailable JOSE G MEDIAN IIIF FABRICIO, ELISSA FABRICIO Unavailable Unavailable ELISSA FABRICIO, ELISSA FABRICIO Unavailable Unavailable Purpose Continuity of Care Document - 09-16-2007 through 2016 Problems Code Diagnosis DOS Provider Status [id number] OTHER LONG 10-20-2016 [facility] CURRENT INC DRUG THERAPY R928 OTH ABNORM 10-26-2016 [place] & MEDICAL INCONCLUSIV IMAGING ASS E FIND ON DX IMAG BREAST R0602 SHORTNESS 05-19-2016 [place] OF BREATH MEDICAL IMAGING ASS R4182 ALTERED 05-19-2016 [facility] MENTAL AMBULANCE STATUS SERVICE UNSPECIFIED [id number] POISON 05-19-2016 [facility] HEROIN AMBULANCE ACCIDENTAL SERVICE UNINTENTION AL INIT ENC [id number] ENCOUNTER 03-06-2016 [facility] FRONT DESK LEAD EXAM LLC GENERAL RTN W/O ABNORMAL FIND R102 PELVIC AND 02-04-2016 [place] PERINEAL MEDICAL PAIN IMAGING ASS N926 IRREGULAR 01-26-2016 [facility] MENSTRUATIO PHYSICIANS N GROUP UNSPECIFIED N946 DYSMENORRHE 01-26-2016 [facility] A [facility] UNSPECIFIED INC N912 AMENORRHEA 01-21-2016 ANA UNSPECIFIED [facility] R509 FEVER 01-21-2016 ANA UNSPECIFIED PHYSICIANS, [facility] Z720 TOBACCO USE 01-21-2016 [facility] INC J069 ACUTE UPPER 01-06-2016 ANA PHYSICIANS, RESPIRATORY [facility] INFECTION UNSPECIFIED N6019 DIFFUSE 07-12-2015 [facility] CYSTIC [...] NOT SPECIFIED 5589 OTH&UNSPEC 04-08-2015 [facility] NONINFECTIO [facility] ITIS&COLITI S 53607 ABDOMINAL 03-22-2015 [facility] [place] PAIN, RADIOLOGY UNSPECIFIED SITE 60211 ABDOMINAL 03-22-2015 [facility] PA[facility] RIGHT N EMERGENCY UPPER PHYS QUADRANT 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 INC 59846 LUMP OR 01-08-2015 [facility] MASS IN [facility] BREAST INC 70840 OTHER 01-08-2015 [place] ABNORMAL MEDICAL FINDING IMAGING ASS RADIOLOGICA L EXAM BREAST 87777 UNSPECIFIED 12-31-2014 [facility] VAGINITIS PHYSICIANS AND GROUP VULVOVAGINI TIS 7231 CERVICALGIA 12-12-2014 [place] [facility]ICAL [facility] ASS 7241 PAIN IN 12-12-2014 [place] THORACIC MEDICAL SPINE IMAGING ASS 89400 INJURY OF 12-12-2014 [place] FACE AND MEDICAL NECK OTHER IMAGING ASS AND UNSPECIFIED 60589 OTHER 12-12-2014 [place] INJURY OF MEDICAL CHEST WALL IMAGING ASS 48091 OTHER 12-12-2014 [place] INJURY OF MEDICAL OTHER SITES IMAGING ASS OF TRUNK 0794 HUMAN 12-08-2014 [facility], PAPILLOMA LLC VIRUS IN CCE & UNS SITE 2331 CARCINOMA 12-08-2014 [facility] IN SITU OF PHYSICIANS CERVIX GROUP UTERI 87798 MODERATE 12-08-2014 [facility], DYSPLASIA LLC OF CERVIX V016 CONTACT 11-27-2014 [facility] WITH OR DISTRICT EXPOSURE TO TH DEPT VENEREAL NEFTALI DISEASES V7241 11-27-2014 [facility] EXAMINATION DISTRICT OR TEST HLTH DEPT NEGATIVE NEFTALI RESULT V692 PROBLEMS 11-20-2014 [facility] RELATED TO [facility] HIGH-RISK INC SEXUAL BEHAVIOR 6268 OTH D/O 10-13-2014 [facility] MENSTRUATIO PHYSICIANS N&OTH ABN GROUP BLEED FE GNT TRACT 71444 PAP SMER 09-29-2014 [facility], CERV W/HI [...] MEM [facility]OS[facility] MALIGNANT INC NEOPLASM OF BREAST 4759 UNSPECIFIED 04-23-2014 [facility] SINUSITIS PHYSICIANS GROUP 7881 DYSURIA 04-07-2014 JEFF FREDDY V571 OTHER 02-18-2014 [facility] THERAPY MANOJ 6959 UNSPECIFIED 01-18-2014 AMBER MARTINEZ ERYTHEMATOU S CONDITION 11495 PAIN IN 01-18-2014 AMBER MARTINEZ JOINT, FOREARM 7295 PAIN IN 01-18-2014 AMBER MARTINEZ SOFT TISSUES OF LIMB 05037 CONTUSION 01-18-2014 [facility] OF HAND DEL CASTILLO 65271 PAIN IN 12-25-2013 GARCIA JOINT VASYL PELVIC REGION AND THIGH 7246 DISORDERS 12-25-2013 GARCIA OF SACRUM VASYL 02456 OTHER 12-25-2013 G[facility]IA DISORDER OF VASYL COCCYX 6238 OTHER 10-15-2013 [facility] SPECIFIED NONINFLAMMA TORY DISORDER VAGINA 6824 CELLULITIS& 08-30-2013 [facility] ABSCESS OF HAND EXCEPT FINGERS&JEWELL MB 4619 ACUTE 05-22-2013 ST SINUSITIS, [facility] UNSPECIFIED PHYSICIANS 51869 SPRAIN AND 11-16-2012 ELISSA FABRICIO STRAIN OF UNSPECIFIED SITE OF HAND 9599 INJURY 11-16-2012 ROSARIO III OTHER AND HENRIQUE UNSPECIFIED UNSPECIFIED SITE 7088 OTHER 02-28-2010 GAL[facility], SPECIFIED GILES B URTICARIA 92462 OTHER 02-28-2010 GAL[facility], MALAISE AND GILES B FATIGUE 7862 COUGH 02-28-2010 GALA, GILES B 9951 ANGIONEUROT 02-28-2010 GALA, IC EDEMA GILES B NOT ELSEWHERE CLASSIFIED 7089 UNSPECIFIED 02-08-2010 FAROOQ, URTICARIA DON R 7842 SWELLING 02-08-2010 FAROOQ, MASS OR DON R LUMP IN HEAD AND NECK 81444 ESOPHAGEAL 01-16-2010 [facility] REFLUX [facility] INC 39940 CHEST PAIN 01-16-2010 [facility] UNSPECIFIED [facility] 38555 DENTAL 10-26-2009 TONI MCCULLOUGH W EXTENDING INTO PULP 03985 TOOTH 10-26-2009 JAMEL, BROKEN FX ALLISON W DUE TO TRAUMA W/O MENTION COMP 1120 CANDIDIASIS 06-29-2009 [facility] 1121 CANDIDIASIS 06-29-2009 [facility] VAGINA GROUP 5209 UNSPECIFIED 06-28-2009 ST [facility] DEVELOPMENT &ERUPTION 5259 UNSPECIFIED 06-28-2009 ST [facility] TEETH&SUPPO MED CTR RTING STRUCTURES 27923 UNSPECIFIED 06-25-2009 ST DENTAL [facility] 6260 ABSENCE OF 11-04-2008 [facility] MENSTRU[facility]IO [facility]ICAL N GROUP 2662 OTHER 08-25-2008 [facility] B-COMPLEX HEALTH DEFICIENCIE [facility] ACCT 68192 MILD 08-25-2008 DHS/CO DYSPLASIA HEALTH OF CERVIX [facility] ACCT V2540 UNSPECIFIED 08-25-2008 DHS/CO HEALTH CONTRACEPTI [facility] ACCT [place]VEILLANC E 87237 CONTACT 01-25-2008 [facility] DERMATITIS& [facility] OTHER INC ECZEMA DUE TO SUNBURN 71300 PAP SMER 01-02-2008 PATHOLOGY & CERV CYTOLOGY W/ATYPICAL LAB SQUAMOUS CELLS UNDET 4659 ACUTE URIS 10-10-2007 [facility] OF MEDICAL UNSPECIFIED GROUP SITE 4660 ACUTE 10-10-2007 [facility] V1589 OTH SPEC 09-16-2007 PATHOLOGY & PERS HX CYTOLOGY PRESENTING LAB [facility] OTH 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, 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 TXV8653 J06.9 ACUTE UPPER RESPIRATORY INFECTION, UNSPECIFIED L03.90 [...] % HI GL AN A IN C MN 59 03 04 10 5 00 EA [...] 17 17 83 TA 1 95 PH TN AR N- MA CA CY FF OF 50 CY -3 NT 25 HI -4 AN 0 A IN C ES 65 02 03 30 30 00 EA Ac CI 86 -2 -[address] ti TA 20 0- 4- 00 00 SI ve LO 37 20 20 47 DE MN 50 17 17 34 AM 1 73 [...] ve LO 37 20 20 47 DE MN 50 17 17 34 AM 1 73 [...] ve LO 37 20 20 46 DE MN 40 16 17 68 AM 1 78 [...] PS NT UL HI E AN A MN 00 03 03 0 12 3 EA [...] 9- 9- 00 SI 60 ER ve MN 02 20 20 DE SO ED 20 [...] 8- 3- 00 SI 92 Av ve MN 02 20 20 DE ai ED 20 [...] 00 10 5 WA 69 No Ac TN 00 -1 -2 .0 L- 60 t [...] M.F. complet OR 015 RODRIGES, ed 09:00 SPEEDER HAND ETHNICI WHITE, complet TY 015 NON-HIS ed [...] P DAY 1-7 DRUG CL DRUG TEST 25785 [facility] PRSMV 7 [facility] QUAL DIR INC INC OPTICAL OBS PER DAY DRUG TEST 65010 [facility] PRSMV 7 [facility] MEM [...] ASS CAD WHEN PERF; UNI AMB A0427 [facility] SERVICE 6 AMBULANCE AMBULANCE ALS SERVICE SERVICE EMERGENCY TRANSPORT LEVEL 1 GROUND A0425 [facility] MILEAGE 6 AMBULANCE AMBULANCE PER SERVICE SERVICE STATUTE MILE RADIOLOGI 90834 [place] ALL C EXAM 6 MEDICAL CHEST 2 IMAGING VIEWS ASS FRONTAL&L ATERAL CYTP C/V 66350 [facility], PICKLESIM AUTO THIN 6 LLC ER JR JEANINE [place] [address] [place] GARCIA TRANSVAGI 6 MEDICAL VASYL NAL IMAGING ASS COLLECTIO 02230 [facility] N VENOUS 6 [facility] BLOOD INC INC VENIPUNCT URE THYROID 90329 [facility] HORM 6 [facility] UPTK/THYR INC INC OID HORMONE BINDING RATIO BLOOD 16578 [facility] COUNT 6 [facility] COMPLETE INC INC AUTO&[place] [address] [facility] THYROXINE 6 [facility] [place] [address] [facility] THYROID 6 [facility] STIMULATI INC INC NG HORMONE TSH RADIOLOGI 41791 [place] AR[place] ALL C EXAM 6 MEDICAL CHEST 2 IMAGING VIEWS ASS FRONTAL&L ATERAL SUSCEPTIB 79749 [facility] LTY STDY 6 [facility] ANTIMICRB INC INC IAL MICRO/[place] [address] [facility] STREPTOCO 6 [facility] CCUS INC INC GROUP A CUL BACT 53101 [facility] XCPT 6 [facility] URINE INC INC BLOOD/STO OL AEROBIC ISOL CUL BACT 87676 [facility] AEROBIC 6 [facility] ADDL INC INC METHS DEFINITIV E EA ISOL URNLS DIP 05060 [facility] 6 [facility] STICK/TAB INC INC LET REAGENT AUTO MICROSCOP Y URINE 51171 [facility] 6 [facility] TEST INC INC VISUAL COLOR CMPRSN METHS US BREAST 11165 M[facility] UNI REAL 5 [facility] TIME INC INC WITH IMAGE COMPLETE US BREAST 42003 [place] GARCIA UNI REAL 5 MEDICAL VASYL TIME IMAGING WITH ASS IMAGE LIMITED URINE 44552 [facility] 5 [facility] VISUAL COLOR CMPRSN METHS CULTURE 45229 [facility] BACTERIAL 5 [facility] INC INC QUANTTATI VE COLONY COUNT URINE CULTURE 26350 [facility] AVLIA BCT 5 [facility] ISOL&PRSM INC INC PTV ID ISOLATE EA URINE SUSCEPTIB 62894 [facility] LTY STDY 5 [facility] ANTIMICRB INC INC IAL MICRO/[place] [address] [facility] [place] GENTILE ABDOMEN & 5 RADIOLOGY LUTHER PELVIS W/CONTRAS T MATERIAL US BREAST 76596 [place] ALL UNI REAL 5 MEDICAL TIME IMAGING WITH ASS IMAGE LIMITED US BREAST 40311 [facility] UNI REAL 5 [facility] [place] [address] [facility] SPE[facility] THORACIC 5 MEDICAL VASYL SPINE W/O IMAGING CONTRAST ASS MATERIAL RADIOLOGI 48494 [place] GARCIA C 5 MEDICAL VASYL EXAMINATI IMAGING ON PELVIS ASS 1/[address] LUMBAR 61338 [place] [facility] SPINE 5 MEDICAL VASYL W/O IMAGING CONTRAST ASS MATERIAL RADIOLOGI 32266 [place] GARCIA C EXAM 5 MEDICAL VASYL CHEST 2 IMAGING VIEWS ASS FRONTAL&[place] [address] [place] [facility]IA CERVICAL 5 MEDICAL VASYL SPINE W/O IMAGING CONTRAST [place] L[place]EL V [address] [facility], PICKLESIM SURG 5 LLC ER [facility] PATH[facility]Y GROSS&KATALINA ROSCOPIC EXAM COLPOSCOP 03754 [facility] GARCIA Y CERVIX 5 PHYSICIAN LIZZETTE VAG ELTRD S GROUP CONIZATIO N CERVIX URINE 37575 [facility] GARCIA 5 PHYSICIAN LIZZETTE TEST S GROUP VISUAL COLOR CMPRSN METHS URINE 50946 [facility] DEPT VISUAL NEFTALI NEFTALI COLOR CMPRSN METHS IADNA 23627 [facility] CHLAMYDIA [facility] DEPT TH DEPT TRACHOMAT NEFTALI NEFTALI IS AMPLIFIED PROBE TQ IADNA 70397 [facility] NEISSERIA [facility] DEPT TH DEPT GONORRHOE NEFTALI NEFTALI AE AMPLIFIED PROBE TQ IADNA 39601 [facility] ALEMANON NEISSERIA 5 [facility] INC INC GONORRHOE AE AMPLIFIED PROBE TQ IADNA 39317 [facility] CHLAMYDIA 5 [facility] INC INC TRACHOMAT [place] [address] [facility], ZANA TER SURG 5 LLC PATHOLOGY [place] [address] [facility], ZANA TER SURG 5 LLC PATHOLOGY GROSS&KATALINA ROSCOPIC EXAM COLPOSCOP 94678 [facility] GARCIA Y CERVIX 5 PHYSICIAN LIZZETTE BX CERVIX S GROUP & ENDOCRV CURRETAGE SUSCEPTIB 85841 [facility] LTY STDY 5 [facility] ANTIMICRB INC INC IAL MICRO/AGA R DILUTJ CULTURE 20130 [facility] BACTERIAL 5 [facility] INC INC QUANTTATI VE COLONY COUNT URINE CULTURE 07114 [facility] BCT 5 [facility] ISOL&PRSM INC INC PTV ID ISOLATE EA URINE URINE 40793 [facility] 5 PHYSICIAN PHYSICIAN TEST S GROUP S GROUP VISUAL COLOR CMPRSN METHS URINE 65[address] [facility] [address] [facility] DE[facility] VISUAL NEFTALI NEFTALI COLOR CMPRSN METHS CONTRACEP A4267 [facility] TIVE 5 [facility] SU[facility]PLY [facility] DEPT CONDOM NEFTALI NEFTALI MALE EACH INJECTION J1050 [facility] 5 [facility] MEDROXYPR [facility] DEPT OGESTERON NEFTALI NEFTALI E ACETATE 1 MG CYTP 92738 [facility], BRE CERV/VAG 5 LLC KAI AUTO THIN LAYER PREP MNL SCREEN IADNA 32264 [facility] CHLAM[facility]IA 5 [facility] DE[facility] TRACHOMAT NEFTALI NEFTALI IS AMPLIFIED PROBE TQ CYTP 22156 [facility] CERVICAL/ 5 LLC KAI VAGINAL REQ INTERP PHYSICIAN IADNA 29586 [facility] NEISSERIA [facility] DEPT GONORRHOE NEFTALI NEFTALI AE AMPLIFIED PROBE TQ RADEX 24985 [place] [facility] HAND 5 MEDICAL VASYL MINIMUM 3 IMAGING VIEWS ASS US BREAST 20719 [facility] REAL 4 [facility] TIME INC INC W/IMAGE DOCUMENTA TION MRI 41321 ACUNA TRA ACUNA TRA SPINAL 4 CANAL LUMBAR W/O CONTRAST MATERIAL APPLICATI 14389 [facility] ON [address] [facility] MODALITY MANOJ MANOJ 1/> AREAS HOT/COLD PACKS THERAPEUT [address] IC PX 1/> 4 [facility] MANOJ MANOJ EACH 15 MIN EXERCISES THERAPEUT [address] IC PX 1/> 4 [facility] MANOJ MANOJ EACH 15 MIN EXERCISES APPLICATI [address] [facility] ON 4 [facility]J MANOJ 1/> AREAS HOT/COLD PACKS THERAPEUT [address] IC PX 1/> 4 [facility] MANOJ MANOJ EACH 15 MIN EXERCISES APPLICATI [address] [facility] 4 [facility] MANOJ 1/> AREAS HOT/COLD PACKS THERAPEUT [address] IC PX 1/> 4 [facility] MANOJ MANOJ EACH 15 MIN EXERCISES THERAPEUT [address] IC PX 1/> 4 [facility] MANOJ MANOJ EACH 15 MIN EXERCISES APPLICATI [address] ON [address] [facility] MODALITY MANOJ MANOJ 1/> AREAS HOT/COLD PACKS APPLICATI [address] ON 4 [facility]J MANOJ 1/> AREAS HOT/COLD PACKS PHYSICAL [address] THERAPY [address] [facility] EVALUATIO MANOJ MANOJ N THERAPEUT [address] IC PX 1/> 4 [facility] MANOJ MANOJ EACH 15 MIN EXERCISES RADEX 90752 [facility] WRIST 4 MAR MAR COMPLETE MINIMUM 3 VIEWS RADEX 43484 AMBER AMBER HAND 4 MAR MAR MINIMUM 3 VIEWS RADEX 42076 [facility] SACRUM & 4 [facility] COCCYX INC INC MINIMUM 2 VIEWS RADEX 97163 [facility] SPINE 4 [facility] LUMBOSACR INC INC AL MINIMUM 4 VIEWS RADIOLOGI 81810 [facility] C 4 [facility] EXAMINATI INC INC ON PELVIS 1/2 VIEWS HEMOGLOBI 13507 [facility] N 4 [facility] GLYCOSY[place] [address] [facility] THYROID 4 [facility] STIMULATI INC INC NG HORMONE TSH BLOOD 01758 [facility] COUNT 4 [facility] COMPLETE INC INC AUTO&AUTO DIFRNTL WBC LIPID 47231 [facility] PANEL 4 [facility] INC INC GONADOTRO 14477 [facility] PIN 4 [facility]OSP CHORIONIC [place] [address] [facility] THYROXINE 4 [facility] TOTAL INC INC COMPREHEN 89540 [facility] SIVE 4 [facility] METABOLIC INC INC PANEL SEDIMENTA 64657 [facility] TION RATE 4 [facility] RBC INC INC NON-AUTOM ATED RADEX 71606 ROSARIO ROSARIO FINGR 3 III HENRIQUE III HENRIQUE MINIMUM 2 VIEWS BLOOD 15736 [facility] COUNT 0 [facility] COMPLETE INC INC AUTO&[place] [address] [facility] THYROXINE 0 [facility] TOTAL INC INC SEDIMENTA 64469 [facility] TION RATE 0 [facility] RBC INC INC NON-AUTOM ATED DEMO&/MACRINA 55673 GALA CEDEÑO, L OF PT 0 GILES B GILES B UTILIZ AERSL GEN/NEB/I NHLR/IP ANTINUCLE 26988 [facility] AR 0 [facility] ANTIBODIE INC INC S SUZETTE ANTIBODY 36472 [facility] HELICOBAC 0 [facility] TER INC INC PYLORI BRNCDILAT 21214 GALA CEDEÑO, RSPSE 0 GILES B GILES B SPMTRY PRE&POST- BRNCDILAT ADMN RHEUMATOI 43554 [facility] D FACTOR 0 [facility]OS[facility] QUANTITAT [place] [address] [facility] THYROID 0 [facility] STIMULATI INC INC NG HORMONE TSH MICROSOMA 63399 [facility] L 0 [facility] ANTIBODIE INC INC S EACH THER 30482 JAMEL MCCULLOUGH PROPH/DX 0 , ALLISON COOPER NJX IV W W PUSH SINGLE/1S T SBST/DRUG DEEP D9220 JAMEL FERNANDEZERSON SEDATION/ 0 , ALLISON COOPER GENERAL W W ANESTHESI A-1ST 30 MINUTES ORTHOPANT 49919 MCCULLOUGH MCCULLOUGH OGRAM 0 , ALLISON COOPER W W SUSCEPTIB 54614 [facility] LTY STDY 9 [facility] ANTIMICRB INC INC IAL MICRO/AGA R DILUTJ CULTURE 25194 [facility] BACTERIAL 9 [facility] INC INC QUANTTATI VE COLONY COUNT URINE CULTURE 16155 [facility] BCT 9 [facility] ISOL&PRSM INC INC PTV ID ISOLATE EA URINE URNLS DIP 48240 [facility] 9 [facility] STICK/TAB INC INC LET REAGENT AUTO MICROSCOP Y URINE 02867 [facility], 9 MEDICAL VIRAL TEST GROUP VISUAL COLOR CMPRSN METHS URNLS DIP 95568 [facility], 9 MEDICAL VIRAL STICK/TAB GROUP LET RGNT AUTO W/O MICROSCOP Y CULTURE 69267 [facility] BACTERIAL [address] [facility] QUANTTATI MEDICALCE MEDICALCE VE COLONY NTER NTER COUNT URINE CUL BACT 80732 [facility] AEROBIC [address] [facility] ADDL METHS MEDICALCE MEDICALCE DEFINITIV NTER NTER E EA ISOL THERAPEUT 01916 [facility], IC 9 MEDICAL VIRAL PROPHYLAC GROUP TIC/DX INJECTION SUBQ/IM SUSCEPTIB 18607 ST LTY STDY [address] [facility] ANTIMICRB IAL MEDICALCE MEDICALCE MICRO/AGA NTER NTER R DILUTJ INJECTION J0696 [facility], 9 MEDICAL VIRAL CEFTRIAXO GROUP NE SODIUM PER 250 MG IADNA 51891 [facility] NEISSERIA 9 [facility] GONORRHOE BANK ACCT AE AMPLIFIED PROBE TQ IADNA 58430 [facility] [place] CHLAMYDIA 9 [facility] TRACHOMAT BANK ACCT IS AMPLIFIED PROBE TQ CYTP 39653 [facility] CERV/VAG 9 [facility] L[facility] BANK ACCT PREP MNL SCREEN CONTRACEP A4267 [facility] [place] TIVE 9 [facility] SUPPLY [facility] CONDOM BANK ACCT MALE EACH URINE 42203 MARG[facility]ITA AVILA 8 [facility] TEST INC INC VISUAL COLOR CMPRSN METHS CYTP C/V 35576 PATHOLOGY PATHOLOGY AUTO THIN 8 & & LYR CYTOLOGY CYTOLOGY PREPJ SCR LAB LAB MNL RESCR PHYS IADNA 51701 PATHOLOGY PATHOLOGY PAPILLOMA 8 & & VIRUS CYTOLOGY CYTOLOGY HUMAN LAB LAB AMPLIFIED PROBE TQ CYTP 03003 PATHOLOGY PATHOLOGY CERVICAL/ 8 & & VAGINAL CYTOLOGY CYTOLOGY REQ LAB LAB INTERP PHYSICIAN CYTP C/V 01096 PATHOLOGY PATHOLOGY AUTO THIN 8 & & LYR CYTOLOGY CYTOLOGY PREPJ SCR LAB LAB MNL RESCR PHYS Encounters Encounter Start End Date Code Location Performer Type Date [facility] MARGARITA - 7 7 [facility] MARGARITA - 7 7 [facility] OUTPATIEN [facility] HOSPITAL MARGARITA [facility] 6 6 [facility] OUTPATIEN [facility] PERIODIC 03300 [facility] PREVENTIV 6 6 PHYSICIAN E MED EST S GROUP PATIENT 18-39 YRS [facility]OSPITAL MARGARITA [facility] 6 6 [facility] OUTPATIEN [facility] OFFICE 29626 [facility] OUTPATIEN 6 6 PHYSICIAN T VISIT S GROUP 25 MINUTES HOSPITAL MARGARITA - 6 6 [facility] OUTPATIEN [facility] T EMERGENCY 29678 MARGARITA 6 6 [facility]OW/MODER SEVERITY EMERGENCY 53359 ANA DAWSON 6 6 PHYSICIAN DEPARTMEN S, [facility] T VISIT HIGH/URGE NT SEVERITY [facility]OSPITAL MARG[facility] - 6 6 [facility] T EMERGENCY 24008 [facility] 6 6 [facility] DEPARTMEN INC T VISIT LIMITED/M INOR PROB EMERGENCY 20899 ANA MI [facility] 6 6 PHYSICIAN DEPARTMEN S, [facility] T VISIT MODERATE SEVERITY HOSPITAL MARGARITA - 5 5 [facility] T OFFICE 30804 [facility] MEZA OUTPATIEN 5 5 MD SHAN, T VISIT [facility] 10 MINUTES EMERGENCY 36199 [facility] 5 5 [facility] T VISIT PHYS HIGH/URGE NT SEVERITY OFFICE 54636 MARG[facility]ITA VITALE OUTPATIEN 5 5 [facility] T VISIT HOSPITAL 15 MINUTES HOSPITAL MARGARITA - 5 5 [facility] INC T EMERGENCY 11537 [facility] NEVIN DEPT 5 5 ROX[place]NE RUI VISIT EMERGENCY HIGH PHYS SEVERITY& THREAT FUNCJ OFFICE 92735 HALLE TORREZ AN OUTPATIEN 5 5 T [facility] 30 MINUTES [facility] MARGARITA - 5 5 [facility] T OFFICE 91271 [facility] OUTPATIEN 5 5 [facility] T VISIT INC 10 MINUTES HOSPITAL MARGARITA - 5 5 [facility] INC T OFFICE 72946 [facility] OUTPATIEN 5 5 PHYSICIAN T VISIT S GROUP 15 MINUTES OFFICE 03936 [facility] 10 NEFTALI ROBERT F. [facility] - 5 5 [facility] 5 5 [facility] T OFFICE [id number] [facility] OUTPATIEN 5 5 PHYSICIAN [place] T VISIT S GROUP 15 MINUTES INITIAL 97783 [facility] DE[facility] MEDICINE NEFTALI BUCHANAN PT AGE [id number] [facility] - 4 4 [facility] T OFFICE 07480 [facility] OUTPATIEN 4 4 PHYSICIAN [place] T VISIT S GROUP 15 MINUTES OFFICE 04617 [facility] OUTPATI[facility] 4 4 PHYSICIAN [place] T VISIT S GROUP 15 MINUTES EMERGENCY 94963 RICHARDSO RICHARDSO 4 4 N FREDDY N FREDDY DEPARTMEN T VISIT MODERATE SEVERITY OFFICE 54185 [facility] TRA [facility] TRA OUTPATIEN 4 4 T VISIT 15 MINUTES OFFICE 68652 [facility] TRA AC[facility]NA TRA OUTPATIEN 4 4 T VISIT [address] - 4 4 [facility] - 4 4 [facility] EMERGENCY 42842 MEHRAN ALURENT 4 4 [facility] DEPARTMEN T VISIT MODERATE SEVERITY OFFICE 48995 ACUNA TRA ACUNA TRA CONSULTAT 4 4 ION NEW/ESTAB PATIENT 40 MIN [facility] - 4 4 [facility] T HOSPITAL MARGARITA - 4 4 [facility] EMERGENCY 58127 [place] TR[facility] 4 4 DEPARTMEN T VISIT HIGH/URGE NT SEVERITY EMERGENCY 47656 [place] TR[facility] 4 4 DEPARTMEN T VISIT MODERATE SEVERITY OFFICE 57533 [facility] VIR OUTPATIEN 3 3 [facility] T VISIT 15 PHYSICIAN MINUTES S EMERGENCY 48437 ZAHRA SWEENEY 3 3 FABRICIO FABRICIO DEPARTMEN T VISIT HIGH/URGE NT SEVERITY EMERGENCY 42899 ELISSA FABRICIO ELISSA FABRICIO 3 3 DEPARTMEN T VISIT MODERATE SEVERITY [facility]OSPITAL [facility] - 0 0 [facility] OFF[facility] 79126 GALA, GALA, CONSULTAT 0 0 GILES B GILES B ION NEW/ESTAB PATIENT 60 MIN OFFICE 40757 CAPRI FAROOQ OUTPATIEN 0 0 DON R DON R T VISIT 15 MINUTES HOSPITAL M[facility] - 0 0 [facility] 11958 BRE MEDINA 0 0 EMERGENCY III, [facility] JOSE G T VISIT HIGH/URGE ASSOCIATE NT S SEVERITY EMERGENCY 14684 [facility] 2001 T VISIT LOW/MODER SEVERITY OFFICE 34457 [facility] , ALLISON COOPER T NEW 10 W W MINUTES EMERGENCY 59680 BRE PLASENCIA, 9 9 EMERGENCY [facility] O T VISIT MODERATE ASSOCIATE SEVERITY S EMERGENCY 90550 [facility] 9 9 [facility] 2001 T VISIT LIMITED/M INOR PROB HOSPITAL MARGARITA - 9 9 [facility] T OFFICE 46935 [facility] 9 9 MEDICAL VIRAL T VISIT GROUP 15 MINUTES EMERGENCY 21583 MAJO, 9 9 [facility] Milner [facility] MED CTR T VISIT MODERATE SEVERITY EMERGENCY [address] [facility], 9 9 [place] CHANDLER [facility] T VISIT MODERATE SEVERITY EMERGENCY 58536 9 9 [facility] T VISIT LOW/MODER SEVERITY [facility] - [address] [facility] [address] - 9 9 [facility] T MEDICALCE NTER OFFICE 39987 [facility] 9 9 MEDICAL VIRAL T VISIT GROUP 15 MINUTES PERIODIC 08409 DHS/CO MARGARITA PREVENTIV 9 9 [facility] PATIENT BANK ACCT 18-39 YRS EMERGENCY 97248 [facility], 8 8 [place] CHAVEZ [facility] MED CTR T VISIT MODERATE SEVERITY HOSPITAL [facility]ITA - 8 8 [facility] INC T EMERGENCY 26666 [facility] 8 8 [facility]ISIT MODERATE SEVERITY OFFICE 48232 [facility] 8 8 N JR, T VISIT OBSTETRIC MARLENA 10 S AND MINUTES GYNECOLOG Y OFFICE 47276 [facility] LEE[facility] 8 8 MEDICAL VIRAL T VISIT GROUP 15 MINUTES OFFICE 02807 [facility] N JR, T VISIT OBSTETRIC MARLENA 10 S AND MINUTES GYNECOLOG Y
--- OUTSIDE RECORDS SUMMARY | 2017-05-30 06:34 | External Medical Summary Rpt ---
Author Author , NATHANIEL Organization NATHANIEL Address Unknown Phone [email or web address] Care Team Providers Care Vitreo Retinal Surgeon Name Role Phone MACK TORREZ MD, PSC, Unavailable Unavailable MACK TORREZ MD, PSC ARRIAGA ALL, ARRIAGA ALL Unavailable Unavailable ROSARIO III HENRIQUE, Unavailable Unavailable ROSARIO III HENRIQUE ROSARIO III HENRIQUE, Unavailable Unavailable ROSARIO III HENRIQUE [facility] Unavailable Unavailable SERVICE, [facility] Unavailable Unavailable SERVICE, [facility] KATHY BUNDY, Unavailable Unavailable [...] FABRICIO DUFF DERRICK, DUFF DERRICK [facility]available Unavailable [facility] [place] [place] [facility] [facility] FRYMAN EUG, FRYMAN Unavailable Unavailable EUG DELBERT KATALINA, DELBERT Unavailable Unavailable [facility] Unavailable Unavailable [facility] JELANI KASPER, Unavailable Unavailable JELANI KASPER HARPER Unavailable [facility]available [facility] Unavailable Unavailable [facility] Unavailable Unavailable [facility], [facility] Unavailable Unavailable HOSPITAL, [facility] ALLISON MCCULLOUGH, Unavailable Unavailable ALLISON MCCULLOUGH [facility], Unavailable Unavailable [facility] CONSTANTINE CABRERA Unavailable Unavailable ACUNA TRA, ACUNA TRA Unavailable Unavailable RAMESH OSBORN, Unavailable Unavailable RAMESH OSBORN [facility] Unavailable Unavailable [facility], [facility] MARLENA CORTÉS JR, Unavailable Unavailable MARLENA CORTÉS JR, MD, HALLE Unavailable Unavailable SHAN QUINN, Unavailable Unavailable GILES QUINN, Unavailable Unavailable GILES CEDEÑO JR RUI, NEVIN [...] [facility] Un[facility] Unavailable Unavailable HOSPITAL, [facility] Unavailable Unavailable [facility], [facility] Unavailable Unavailable PHYSICIANS, [facility] MAN[facility]J, Unavailable Unavailable [facility] PURVI FAROOQ, Unavailable Unavailable FAROOQPURVI ROD [facility] # Unavailable Unavailable 4, [facility] 4 [facility] Unavailable Unavailable #591, [facility] Unavailable Unavailable DEPT [facility] DEPT [facility] Unavailable Unavailable DEPT [facility] JOSE G MEDINA III, Unavailable Unavailable JOSE G MEDINA III ELISSA FABRICIO, ELISSA FABRICIO Unavailable Unavailable ELISSA FABRICIO, ELISSA FABRICIO Unavailable Unavailable Purpose Continuity of Care Document - 09-16-2007 through 2016 Problems Code Diagnosis DOS Provider Status [id number] OTHER LONG 10-20-[address] [place] [address] [facility] CURRENT INC DRUG THERAPY R928 OTH ABNORM 06-14-2016 [place] & MEDICAL INCONCLUSIV IMAGING ASS E FIND ON DX IMAG BREAST R0602 SHORTNESS 05-19-2016 [place] OF BREATH MEDICAL IMAGING ASS R4182 ALTERED 05-19-2016 [facility] STATUS SERVICE UNSPECIFIED [id number] POISON 05-19-2016 [facility] ACCIDENTAL SERVICE UNINTENTION AL INIT ENC [id number] ENCOUNTER 03-06-2016 [facility] PRODUCTION EXPEDITER EXAM LLC GENERAL RTN W/O ABNORMAL FIND R102 PELVIC AND 02-04-2016 [place] PERINEAL MEDICAL PAIN IMAGING ASS N926 IRREGULAR 01-26-2016 [facility] MENSTRUATIO PHYSICIANS N GROUP UNSPECIFIED N946 DYSMENORRHE 01-26-2016 [facility] A [facility] UNSPECIFIED INC N912 AMENORRHEA 01-21-2016 [facility] UNSPECIFIED PHYSICIANS, PLLC R509 FEVER 01-21-2016 [facility] UNSPECIFIED PHYSICIANS, PLLC Z720 TOBACCO USE 01-21-2016 [facility] INC J069 ACUTE UPPER 01-06-2016 [facility] PHYSICIANS, RESPIRATORY [facility] INFECTION UNSPECIFIED 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 N6489 OTHER 07-12-2015 [place] SPECIFIED MEDICAL DISORDERS IMAGING ASS OF BREAST 7242 LUMBAGO 04-27-2015 MACK TORREZ MD, PSC 7244 THORACIC/DEYVI 04-27-2015 ALEXANDRA CLARK MD, PSC NEURITIS/RA DICULITIS UNSPEC 5959 UNSPECIFIED 04-13-2015 [facility] CYSTITIS N EMERGENCY PHYS 5990 URINARY 04-13-2015 [facility] TRACT N EMERGENCY INFECTION PHYS SITE NOT SPECIFIED 5589 OTH&UNSPEC 04-08-2015 [facility] ITIS&COLITI S 69040 ABDOMINAL 03-22-2015 [facility] [place] PAIN, RADIOLOGY UNSPECIFIED SITE 68867 ABDOMINAL 03-22-2015 [facility] PAIN RIGHT N EMERGENCY UPPER PHYS QUADRANT 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 6101 DIFFUSE 01-08-2015 [facility] CYSTIC [facility] MASTOPATHY INC 52351 LUMP OR 01-08-2015 [facility] MASS IN [facility] BREAST INC 18880 OTHER 01-08-2015 [place] ABNORMAL MEDICAL FINDING IMAGING ASS RADIOLOGICA L EXAM BREAST 13296 UNSPECIFIED 12-31-2014 [facility] VAGINITIS PHYSICIANS AND GROUP VULVOVAGINI TIS 7231 CERVICALGIA 12-12-2014 [facility] [place] 7241 PAIN IN 12-12-2014 [place] THORACIC MEDICAL SPINE IMAGING ASS 19660 INJURY OF 12-12-2014 [place] FACE AND MEDICAL NECK OTHER IMAGING ASS AND UNSPECIFIED 87795 OTHER 12-12-2014 [place] INJURY OF MEDICAL CHEST WALL IMAGING ASS 40342 OTHER 12-12-2014 [place] INJURY OF MEDICAL OTHER SITES IMAGING ASS OF TRUNK 0794 HUMAN 12-08-2014 [facility], PAPILLOMA LLC VIRUS IN CCE & UNS SITE 2331 CARCINOMA 12-08-2014 [facility] IN SITU OF PHYSICIANS CERVIX GROUP UTERI 27299 MODERATE 12-08-2014 [facility], DYSPLASIA LLC OF CERVIX V016 CONTACT 11-27-2014 [facility] WITH OR DISTRICT EXPOSURE TO [facility] DEPT VENEREAL NEFTALI DISEASES V7241 11-27-2014 [facility] EXAMINATION DISTRICT OR TEST HLTH DEPT NEGATIVE NEFTALI RESULT V692 PROBLEMS 11-20-2014 [facility] RELATED TO [facility] HIGH-RISK INC SEXUAL BEHAVIOR 6268 OTH D/O 10-13-2014 [facility] MENSTRUATIO PHYSICIANS N&OTH ABN GROUP BLEED FE GNT TRACT 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[facility], CERV W/HI LLC GRADE SQUAMOUS INTRAEPITH LES V2549 SURVEILLANC 09-29-2014 [facility] E OTH PREV DISTRICT PRSC HL DEPT CONTRACEPT NEFTALI METHOD V2689 OTHER 09-29-2014 [facility] SPECIFIED DISTRICT PROCREATIVE HLTH DEPT MANAGEMENT NEFTALI V7231 ROUTINE 09-29-2014 [facility], GYNECOLOGIC LLC AL EXAMINATION 9594 INJURY 09-24-2014 [place] OTHER AND MEDICAL UNSPECIFIED IMAGING ASS HAND EXCEPT FINGER V163 FAMILY 07-08-2014 [facility] HISTORY OF [facility] MALIGNANT INC NEOPLASM OF BREAST 7249 UNSPECIFIED 04-23-2014 [facility] SINUSITIS PHYSICIANS GROUP 7881 DYSURIA 04-07-2014 JEFF HAYES V571 OTHER 02-18-2014 [facility] MANOJ 6959 UNSPECIFIED 01-18-2014 AMBER MARTINEZ ERYTHEMATOU S CONDITION 89108 PAIN IN 01-18-2014 AMBER MARTINEZ JOINT, FOREARM 7295 PAIN IN 01-18-2014 AMBER MARTINEZ SOFT TISSUES OF LIMB 09933 CONTUSION 01-18-2014 [facility] OF HAND DEL CASTILLO 65094 PAIN IN 12-25-2013 G[facility]IA JOINT VASYL PELVIC REGION AND THIGH 7246 DISORDERS 12-25-2013 GARCIA OF SACRUM VASYL 94216 OTHER 12-25-2013 [facility] DISORDER OF VASYL COCCYX 6238 OTHER 10-15-2013 [facility] SPECIFIED NONINFLAMMA TORY DISORDER VAGINA 6824 CELLULITIS& 08-30-2013 [facility] ABSCESS OF HAND EXCEPT FINGERS&JEWELL MB 4619 ACUTE 05-22-2013 ST SINUSITIS, [facility] UNSPECIFIED PHYSICIANS 25926 SPRAIN AND 11-16-2012 ELISSA FABRICIO STRAIN OF UNSPECIFIED SITE OF HAND 9599 INJURY 11-16-2012 ROSARIO III OTHER AND HENRIQUE UNSPECIFIED UNSPECIFIED SITE 7088 OTHER 02-28-2010 GALA, SPECIFIED GILES B URTICARIA 55254 OTHER 02-28-2010 GALA, MALAISE AND GILES B FATIGUE 7862 COUGH 02-28-2010 GALA, GILES B 9951 ANGIONEUROT 02-28-2010 GALA, IC EDEMA GILES B NOT ELSEWHERE CLASSIFIED 7089 UNSPECIFIED 02-08-2010 FAROOQ, URTICARIA DON R 7842 SWELLING 02-08-2010 FAROOQ, MASS OR DON R [place] IN HEAD AND NECK 02866 ESOPHAGEAL 01-16-2010 [facility] REFLUX [facility] INC 12342 CHEST PAIN 01-16-2010 [facility]PECIFIED [facility] 28696 DENTAL 10-26-2009 JAMEL, CARIES ALLISON W EXTENDING INTO PULP 93015 TOOTH 10-26-2009 JAMEL, BROKEN FX ALLISON W DUE TO TRAUMA W/O MENTION COMP 1120 CANDIDIASIS 06-29-2009 [facility] 1121 CANDIDIASIS 06-29-2009 [facility] 5209 UNSPECIFIED 06-28-2009 ST [facility] DEVELOPMENT &ERUPTION 5259 UNSPECIFIED 06-28-2009 [facility] TEETH&SUPPO MED CTR RTING STRUCTURES 23688 UNSPECIFIED 06-25-2009 ST DENTAL [facility] 6260 ABSENCE OF 11-04-2008 [facility]ENSTRU[facility] N GROUP 2662 OTHER 08-25-2008 [facility] B-COMPLEX [facility] DEFICIENCIE [facility] ACCT 66834 MILD 08-25-2008 [facility] DYSPLASIA [facility] ACCT V2540 UNSPECIFIED 08-25-2008 [facility] HEALTH CONTRACEPTI CENTRAL [place] BANK ACCT SURVEILLANC E 53348 CONTACT 01-25-2008 [facility] DERMATITIS& [facility] OTHER INC ECZEMA DUE TO SUNBURN 48742 PAP SMER 01-02-2008 PATHOLOGY & CERV CYTOLOGY W/ATYPICAL LAB SQUAMOUS CELLS UNDET 4659 ACUTE URIS 10-10-2007 [facility] OF MEDICAL UNSPECIFIED GROUP SITE 4660 ACUTE 10-10-2007 [facility] V1589 OTH SPEC 09-16-2007 PATHOLOGY & PERS HX CYTOLOGY PRESENTING LAB [facility] OTH Medications Na ND Rx Da Fi Fi [...] % HI GL AN A IN C [place] 59 03 04 10 5 00 EA [...] 17 17 83 TA 1 95 PH NV AR N- MA CA CY FF OF 50 CY -3 NT 25 HI -4 AN 0 A IN C ES 65 02 03 30 30 00 EA Ac CI 86 -2 -[address] ti TA 20 0- 4- 00 00 SI ve LO 37 20 20 47 DE [place] 50 17 17 34 AM 1 73 [...] ve LO 37 20 20 47 DE [place] 50 17 17 34 AM 1 73 [...] ve LO 37 20 20 46 DE [place] 40 16 17 68 AM 1 78 [...] PS NT UL HI E AN A [place] 00 03 03 0 12 3 EA 16 HE Ac OM 78 -1 -[address] 73 ND ti ET 11 SI 70 ER ve SONI 83 20 20 DE SO ZI 01 10 10 N NE 0 PH RO AR BE 25 MA RT CY W MG OF TA BL CY ET NT HI AN A IB 53 03 03 0 20 7 EA 16 HE Ac UP 74 -1 -[address] 73 ND ti RO 60 1 SI 71 ER ve FE 46 20 20 DE SO N 60 10 10 N 80 5 PH RO 0 AR BE MG MA RT CY W TA BL OF ET CY NT HI AN A ME 00 03 03 0 21 6 EA 16 HE Ac TH 78 -0 -[address] 69 ND ti YL 15 SI 60 ER ve [place] 02 20 20 DE SO ED 20 10 10 N NI 7 PH RO SO AR BE LO MA RT NE CY W 4 OF MG CY DO NT SE HI PK AN A 00 03 03 0 20 3 EA 16 HE Ac 05 -0 -[address] 69 ND ti 44 9 9 SI 61 ER ve 65 20 20 DE SO 02 10 10 N 9 PH RO AR BE MA RT CY W OF CY NT HI AN A 00 03 03 0 20 3 EA 16 HE Ac 05 -0 -[address] 69 ND ti 44 9 9- 00 SI 61 ER ve 65 20 20 DE SO 02 10 10 N 9 PH RO AR BE MA RT CY W OF CY NT HI AN A AM 00 03 03 0 30 10 EA 16 HE Ac OX 78 -0 -[address] 62 ND ti IC 12 4 4 SI 82 ER ve IL 61 20 20 DE SO LI 30 10 10 N N 5 PH RO 50 AR BE 0 MA RT MG CY W CA OF PS UL CY E NT HI AN A 00 03 03 0 15 3 EA 16 HE Ac 59 -0 -[address] 62 ND ti 10 4- 4 SI 83 ER ve 38 20 [...] .0 TE 07 KA ti AM 35 9- 7 00 90 N ve ET 78 20 20 AI BA HO 12 09 09 D BA XA 8 PH TU ZO AR ND LE M E -T #3 O MP 93 8 DS TA BL ET 00 11 12 00 20 4 EA 15 SE Ac 59 -1 -[address] 18 XT ti 10 7 3 SI 03 ON ve 34 20 20 [...] 8- 3- 00 SI 92 Av ve [place] 02 20 20 DE ai ED 20 [...] 00 10 5 WA 69 No Ac NV 00 -1 -2 .0 L- 60 t [...] MG EN TA LL BL C ET Procedures Procedure DOS Code Location Performer Comment DRUG TEST 46800 [facility] PRSMV 7 [facility] QUAL DIR INC INC OPTICAL OBS PER DAY DRUG TEST G0480 [facility] DEFINITV [address] ID INC INC METH P DAY 1-7 DRUG CL DRUG TEST 72944 [facility] PRSMV 7 [facility] INSTRMNT INC INC CHEMISTRY ANALYZERS DRUG TST G0477 [facility] PRESUMP;C 6 [facility] PBL BEING INC INC READ DC OPT OBV ONLY DRUG TEST G0480 [facility] DEFINITV [address] ID INC INC METH P DAY 1-7 DRUG CL DIAGNOSTI G0206 [facility] ZELAYA C 6 MEDICAL VASYL MAMMOGRAP IMAGING HY INCL ASS CAD WHEN PERF; UNI AMB A0427 [facility] SERVICE 6 AMBULANCE AMBULANCE ALS SERVICE SERVICE EMERGENCY TRANSPORT LEVEL 1 RADIOLOGI 97500 [place] CORINA ALL C EXAM 6 MEDICAL CHEST 2 IMAGING VIEWS ASS FRONTAL&L ATERAL GROUND A0425 [facility] PER SERVICE SERVICE STATUTE MILE CYTP C/V 64849 [facility], PICKLESIM AUTO THIN 6 LLC ER JR JEANINE LYR PREPJ SCR MNL RESCR PHYS 22592 [place] GARCIA TRANSVAGI 6 [place]ICAL [place] [address] [facility] THYROXINE 6 [facility] [place] [place] [address] [facility] THYROID 6 [facility] STIMULATI INC INC NG HORMONE TSH THYROID 92057 [facility] HORM 6 [facility] UPTK/THYR INC INC OID HORMONE BINDING RATIO BLOOD 12593 [facility] COUNT 6 [facility] COMPLETE INC INC AUTO&AUTO DIFRNTL WBC COLLECTIO 12206 [facility] N VENOUS 6 [facility] BLOOD INC INC VENIPUNCT URE RADIOLOGI 29895 [place] CORINA ALL C EXAM 6 MEDICAL CHEST 2 IMAGING VIEWS ASS FRONTAL&L ATERAL SUSCEPTIB 05708 [facility] LTY STDY 6 [facility] ANTIMICRB INC INC IAL MICRO/AGA R DILUTJ URNLS DIP 55503 [facility] 6 [facility] STICK/TAB INC [place] [address] [facility] STREPTOCO 6 [facility] CCUS INC INC GROUP A CUL BACT 36360 [facility] XCPT 6 [facility] URINE INC INC BLOOD/STO OL AEROBIC ISOL CUL BACT 49986 [facility] AEROBIC 6 [facility] ADDL INC INC METHS DEFINITIV E EA ISOL URINE 43948 [facility] 6 [facility] TEST INC INC VISUAL COLOR CMPRSN METHS US BREAST 35176 [facility] UNI REAL 5 [facility] TIME INC INC WITH IMAGE COMPLETE US BREAST 54260 [facility] GARCIA UNI REAL 5 MEDICAL VASYL TIME IMAGING WITH ASS IMAGE LIMITED URINE 17804 [facility] 5 [facility] VISUAL COLOR CMPRSN METHS SUSCEPTIB 28747 [facility] LTY STDY 5 [facility] ANTIMICRB INC INC IAL MICRO/AGA R DILUTJ CULTURE 75856 [facility] BACTERIAL 5 [facility] INC INC QUANTTATI VE COLONY COUNT URINE CULTURE 79720 [facility] BCT 5 [facility] ISOL&PRSM [place] [address] [facility] [place] GENTILE ABDOMEN & 5 RADIOLOGY LUTHER PELVIS W/CONTRAS T MATERIAL US BREAST 57462 [facility] UNI REAL 5 [facility] TIME INC INC WITH IMAGE COMPLETE US BREAST 71767 [place] ARRIAGA ALL UNI REAL 5 MEDICAL [place] [address] [place] GARCIA THORACIC 5 MEDICAL VASYL SPINE W/[place] [address] [place] GARCIA CERVICAL 5 MEDICAL VASYL SPINE W/O IMAGING CONTRAST ASS MATERIAL CT LUMBAR 49035 [place] GARCIA SPINE 5 MEDICAL VASYL W/O IMAGING CONTRAST ASS MATERIAL RADIOLOGI 74330 [place] GARCIA C EXAM 5 MEDICAL VASYL CHEST 2 IMAGING VIEWS ASS FRONTAL&L ATERAL RADIOLOGI 58976 [place] GARCIA C 5 MEDICAL VASYL EXAMINATI IMAGING ON PELVIS ASS 1/2 [place] L[place] V [address] [facility], PICKLESIM SURG 5 [facility] PATHOLOGY GROSS&KATALINA ROSCOPIC EXAM COLPOSCOP 64805 [facility] GARCIA Y CERVIX 5 PHYSICIAN LIZZETTE VAG ELTRD S GROUP CONIZATIO N CERVIX URINE 54499 [facility] GARCIA 5 PHYSICIAN LIZZETTE TEST S GROUP VISUAL COLOR CMPRSN METHS URINE 61750 [facility] DISTRICT TEST [facility] DEPT HL DEPT VISUAL NEFTALI NEFTALI COLOR CMPRSN METHS IADNA 68790 [facility] NEISSERIA 5 [facility] DEPT [facility] DEPT GONORRHOE NEFTALI NEFTALI AE AMPLIFIED PROBE TQ IADNA 19176 [facility] CHLAMYDIA 5 [facility] DEPT [facility] DEPT TRACHOMAT NEFTALI NEFTALI IS AMPLIFIED PROBE TQ IADNA 36223 [facility] CHLAMYDIA 5 [facility] INC INC TRACHOMAT IS AMPLIFIED PROBE TQ IADNA 99392 [facility] NEISSERIA 5 [facility] INC INC GONORRHOE [place] [address] [facility], JAVA TER SURG 5 [facility] PATHOLOGY [place] [address] [facility], [facility] SURG 5 [facility] PATHOLOGY GROSS&KATALINA ROSCOPIC EXAM COLPOSCOP 39966 [facility] GARCIA Y CERVIX 5 PHYSICIAN LIZZETTE BX CERVIX S GROUP & ENDOCRV CURRETAGE SUSCEPTIB 93856 [facility] LTY STDY 5 [facility] ANTIMICRB INC INC IAL MICRO/AGA R DILUTJ CULTURE 73210 [facility] BACTERIAL 5 [facility] INC INC QUANTTATI VE COLONY COUNT URINE CULTURE 19754 [facility] BCT 5 [facility] ISOL&PRSM INC INC PTV ID ISOLATE EA URINE URINE 19515 [facility] 5 PHYSICIAN PHYSICIAN TEST S GROUP S GROUP VISUAL COLOR CMPRSN METHS URINE 64360 [facility] TEST [facility] DEPT [facility] DEPT VISUAL NEFTALI NEFTALI COLOR CMPRSN METHS INJECTION J1050 [facility] 5 DISTRICT DISTRICT MEDROXYPR [facility] DEPT [facility] DEPT OGESTERON NEFTALI NEFTALI E ACETATE 1 MG CYTP 18639 [facility], BRE CERVICAL/ 5 [facility] KAI VAGINAL REQ INTERP PHYSICIAN CONTRACEP A4267 [facility] TIVE 5 DISTRICT DISTRICT SUPPLY HLTH DEPT HLTH DEPT CONDOM NEFTALI NEFTALI MALE EACH IADNA 04111 [facility] CHLAMYDIA 5 DISTRICT DISTRICT HLTH DEPT HLTH DEPT TRACHOMAT NEFTALI NEFTALI IS AMPLIFIED PROBE TQ IADNA 80823 [facility] NEISSERIA 5 DISTRICT DISTRICT HL DEPT HLTH DEPT GONORRHOE NEFTALI NEFTALI AE AMPLIFIED PROBE TQ CYTP 40398 [facility], [facility] CERV/VAG 5 [facility] KAI AUTO THIN LAYER PREP MNL SCREEN RADEX 43754 [facility] HAND 5 MEDICAL VASYL MINIMUM 3 IMAGING VIEWS ASS US BREAST 08647 [facility] REAL 4 [facility] TIME INC INC W/IMAGE DOCUMENTA TION MRI 53189 ACU[facility] TRA ACUNA TRA SPINAL 4 CANAL LUMBAR W/O CONTRAST MATERIAL THERAPEUT 92696 [facility] IC PX 1/> 4 [facility] MANOJ AMNOJ EACH 15 MIN EXERCISES APPLICATI [address] MODALITY MANOJ MANOJ 1/> AREAS HOT/COLD PACKS APPLICATI [address] MODALITY MANOJ MANOJ 1/> AREAS HOT/COLD PACKS THERAPEUT 44836 [facility]. IC PX 1/> 4 [facility] MANOJ MANOJ EACH 15 MIN EXERCISES THERAPEUT 80430 [facility] IC PX 1/> 4 [facility] MANOJ MANOJ EACH 15 MIN EXERCISES THERAPEUT 92252 [facility]. IC PX 1/> 4 [facility] MANOJ MANOJ EACH 15 MIN EXERCISES APPLICATI [address] MODALITY MANOJ MANOJ 1/> AREAS HOT/COLD PACKS APPLICATI [address] MODALITY MANOJ MANOJ 1/> AREAS HOT/COLD PACKS THERAPEUT [address] IC PX 1/> 4 [facility] MANOJ MANOJ EACH 15 MIN EXERCISES PHYSICAL 03361 . . THERAPY [facility] EV[facility] MANOJ MANOJ N THERAPEUT 65137 [facility]. IC PX 1/> 4 [facility] MANOJ MANOJ EACH 15 MIN EXERCISES APPLICATI [address] ON [facility] MODALITY MANOJ MANOJ 1/> AREAS HOT/COLD PACKS RADEX 70439 AM[facility] AMBER WRIST 4 MAR MAR COMPLETE MINIMUM 3 VIEWS RADEX 28801 [facility] AMBER HAND 4 MAR MAR MINIMUM 3 VIEWS RADEX 69653 [facility] SACRUM & 4 [facility] COCCYX INC INC MINIMUM 2 VIEWS RADIOLOGI 21679 [facility] C 4 [facility] EXAMINATI INC INC ON PELVIS 1/2 VIEWS RADEX 03725 [facility] SPINE 4 [facility] LUMBOSACR INC INC AL MINIMUM 4 [place] [address] [facility] THYROID 4 [facility] STIMULAT[place] [address] [facility] THYROXINE 4 [facility] TOTAL INC INC COMPREHEN 11718 [facility] SIVE 4 [facility] METABOLIC INC INC PANEL SEDIMENTA 96168 [facility] TION RATE 4 [facility] RBC INC INC NON-AUTOM ATED HEMOGLOBI 95711 [facility] N 4 [facility] GLYCOSYLA INC INC RONA A1C BLOOD 89350 [facility] COUNT 4 [facility] COMPLETE INC INC AUTO&AUTO DIFRNTL WBC GONADOTRO 53101 [facility] PIN 4 [facility] CHORIONIC INC INC QUALITATI VE LIPID 22189 [facility] PANEL 4 [facility] INC INC RADEX 11297 ROSARIO PONCE FINGR 3 III HENRIQUE III HENRIQUE MINIMUM 2 [place] [address] [facility] THYROXINE 0 [facility] [place] [address] [facility] THYROID 0 [facility] STIMULATI INC INC NG HORMONE TSH SEDIMENTA 58213 [facility] TION RATE 0 [facility] RBC INC INC NON-AUTOM ATED DEMO&/MACRINA 38475 GALA, GALA, L OF PT 0 GILES B GILES B UTILIZ AERSL GEN/NEB/I NHLR/IP ANTINUCLE 34999 [facility] AR [facility] ANTIBODIE INC INC S SUZETTE MICROSOMA 18327 [facility] L 0 [facility] ANTIBODIE INC INC S EACH BLOOD 27422 [facility] COUNT 0 [facility] COMPLETE INC INC AUTO&AUTO DIFRNTL WBC BRNCDILAT 66405 GALA, GALA, RSPSE 0 GILES B GILES B SPMTRY PRE&POST- BRNCDILAT ADMN RHEUMATOI 85338 [facility] D FACTOR 0 [facility] QUANTITAT INC INC ANA MARÍA ANTIBODY 98035 [facility] HELICOBAC 0 [facility] TER INC INC PYLORI THER 34131 JAMEL MCCULL[facility] PROPH/DX 0 , [facility] NJX IV W W PUSH SINGLE/1S T SBST/DRUG DEEP D9220 JAMEL MCCULLOUGH SEDATION/ 0 , [facility] GENERAL W W ANESTHESI A-1ST 30 MINUTES ORTHOPANT 34001 JAMEL MCCULLOUGH OGRAM 0 , [facility] W SUSCEPTIB 57816 [facility] LTY STDY 9 [facility] ANTIMICRB INC INC IAL MICRO/AGA R DILUTJ URNLS DIP 72293 [facility] STICK/TAB INC INC LET REAGENT AUTO MICROSCOP Y CULTURE 99692 [facility] BCT 9 [facility] ISOL&PRSM INC INC PTV ID ISOLATE EA URINE CULTURE 37542 [facility] BACTERIAL 9 [facility] INC INC QUANTTATI VE COLONY COUNT URINE CULTURE [address] BACTERIAL 9 [facility] QUANTTATI MEDICALCE MEDICALCE VE COLONY NTER NTER COUNT URINE CUL BACT 42205 [facility] AEROBIC 9 [place] ADDL [facility] MEDICALCE MEDICALCE DEFINITIV NTER NTER E EA ISOL TH[facility]APEUT 68024 [facility] VIRAL PROPHYLAC GROUP TIC/DX INJECTION SUBQ/IM URINE 52646 [facility] TEST GROUP VISUAL COLOR CMPRSN METHS URNLS DIP 29306 [facility]AL STICK/TAB GROUP LET RGNT AUTO W/O MICROSCOP Y SUSCEPTIB 42976 [facility] LTY STDY 9 [place] ANTIMICRB IAL MEDICALCE MEDICALCE MICRO/AGA NTER NTER R DILUTJ INJECTION J0696 [facility], 9 MEDICAL VIRAL CEFTRIAXO GROUP NE SODIUM PER 250 MG IADNA 08261 [facility] CHLAMYDIA 9 [facility] TRACHOMAT BANK ACCT IS AMPLIFIED PROBE TQ CONTRACEP A4267 [facility] TIVE 9 [facility] SUPPLY [facility] CONDOM BANK ACCT MALE EACH CYTP 56669 [facility] CERV/VAG 9 [facility] AUTO THIN [facility] LAYER BANK ACCT PREP MNL SCREEN IADNA 33110 [facility] [place] 9 [facility] GONORRHOE BANK ACCT AE AMPLIFIED PROBE TQ URINE 41127 [facility] 8 [facility] TEST INC INC VISUAL COLOR CMPRSN METHS IADNA 79959 PATHOLOGY PATHOLOGY [place] 8 & & VIRUS CYTOLOGY CYTOLOGY [facility] AMPLIFIED PROBE TQ CYTP 75805 PATHOLOGY PATHOLOGY CERVICAL/ 8 & & VAGINAL CYTOLOGY CYTOLOGY REQ LAB LAB INTERP PHYSICIAN CYTP C/V 34035 PATHOLOGY PATHOLOGY AUTO THIN 8 & & LYR CYTOLOGY CYTOLOGY PREPJ SCR LAB LAB MNL RESCR PHYS CYTP C/V 02285 PATHOLOGY PATHOLOGY AUTO THIN 8 & & LYR CYTOLOGY CYTOLOGY PREPJ SCR LAB LAB MNL RESCR PHYS Encounters Encounter Start End Date Code Location Performer Type Date HOSPITAL [facility] - 7 7 [facility] OUTPATIEN [facility] - 7 7 [facility] - 6 6 [facility] PERIODIC [id number] [facility] PREVENTIV 6 6 PHYSICIAN E MED EST S GROUP PATIENT 18-39 YRS HOSPITAL [facility] 6 6 [facility] OFFICE 63776 [facility] OUTPATIEN 6 6 PHYSICIAN T VISIT S GROUP 25 MINUTES HOSPITAL [facility] 6 6 [facility] EMERGENC[facility] 28912 [facility]NA [facility] 6 6 [facility] T VISIT HIGH/URGE NT SEVERITY EMERGENCY 28243 [facility] 6 6 [facility]ED [facility] T VISIT LOW/MODER SEVERITY HOSPITAL [facility] - 6 6 [facility] 23963 ANA [place] [facility] 6 6 PHYSICIAN DEPARTMEN S, [facility] T VISIT MODERATE SEVERITY EMERGENCY 68941 [facility] 6 6 FORMER[facility] NAMED [facility] T VISIT LIMITED/M INOR PROB HOSPITAL MARGARITA - 5 5 [facility] OFF[facility] 48629 MACK MEZA [facility] 5 5 MD SHAN, T VISIT PSC 10 MINUTES EMERGENCY 51019 [facility] CELLARO 5 5 ROXANNE - YORBA [facility] EMERGENCY PAT T VISIT PHYS HIGH/URGE NT SEVERITY OFFICE 95634 [facility] 5 [facility] T VISIT HOSPITAL 15 MINUTES HOSPITAL [facility] 5 5 [facility] 17453 [facility] DEPT 5 5 ROXANNE RUI VISIT EMERGENCY HIGH PHYS SEVERITY& THREAT FUNCJ OFFICE 65571 [facility] OUTPATIEN 5 5 [facility] T VISIT INC 10 MINUTES OFFICE 21016 HALLE TORREZ ANJ OUTPATIEN 5 5 MD [facility] 30 MINUTES [facility] MARGARITA - 5 5 [facility] OUTPATIEN INC [facility]OSPITAL [facility] - 5 5 [facility] T OFFICE 45783 [facility] OUTPATIEN 5 5 PHYSICIAN T VISIT S GROUP 15 MINUTES OFFICE 50878 [facility] 5 [facility] T VISIT [facility] 10 [facility] 5 5 [facility] OUTPATIEN INC [facility] MARGARITA - 5 5 [facility]PATI[facility] INC T OFFICE 81205 [facility] DELBERT OUTPATIEN 5 5 PHYSICIAN KATALINA T VISIT S GROUP 15 MINUTES INITIAL 12734 [facility] PREVENTIV 5 5 [facility] MEDICINE [facility] PT AGE 18-39YRS [facility] MARGARITA - 4 4 [facility] OUTPATIEN INC T OFFICE 89731 [facility] DELBERT OUTPATIEN 4 4 PHYSICIAN KATALINA T VISIT S GROUP 15 MINUTES OFFICE 19282 [facility] DELBERT OUTPATIEN 4 4 PHYSICIAN KATALINA T VISIT S GROUP 15 MINUTES EMERGENCY 66272 RICHARDSO RICHARDSO 4 4 N FREDDY N FREDDY DEPARTMEN T VISIT MODERATE SEVERITY OFFICE 61674 [facility] TRA [facility] TRA OUTPATIEN 4 4 T VISIT 15 MINUTES OFFICE 44999 [facility] TRA [facility] TRA OUTPATIEN 4 4 T VISIT [address] - 4 4 [facility] 4 [facility] EM[facility]GENC[facility] 71441 MEHRAN LAURENT 4 4 [facility] MODERATE SEVERITY OFFICE 35090 ACUNA TRA ACUNA TRA CONSULTAT 4 4 ION NEW/ESTAB PATIENT 40 MIN HOSPITAL MARGARITA - 4 4 [facility] OUTPATIEN [facility]ESS H[facility]PITAL HOSPITAL M[facility] - 4 4 [facility] OUTPATIEN [facility] EMERGENCY 64673 [facility] TRO 4 4 DEPARTMEN T VISIT HIGH/URGE NT SEVERITY EMERGENCY 94092 [facility] TRO 4 4 DEPARTMEN T VISIT MODERATE SEVERITY OFFICE 49011 [facility] OUTPATIEN 3 3 HOLLIS T VISIT 15 PHYSICIAN MINUTES S EMERGENCY 00575 ZAHRA SWEENEY 3 3 FABRICIO FABRICIO [facility] T VISIT HIGH/URGE NT SEVERITY EMERGENCY 32991 ELISSA FABRICIO ELISSA FABRICIO 3 3 DEPARTMEN T VISIT MODERATE SEVERITY HOSPITAL MARGARITA - 0 0 [facility] OFF[facility] 74623 GALA, GALA, CONSULTAT 0 0 GILES B GILES B ION NEW/ESTAB PATIENT 60 MIN OFFICE 46034 CAPRI FAROOQ OUTPATIEN 0 0 DON R DON R T VISIT 15 MINUTES EMERGENCY 49063 BRE MEDINA 0 0 EMERGENCY III, DEPARTMEN SERVICES JOSE G T VISIT HIGH/URGE ASSOCIATE NT S SEVERITY HOSPITAL M[facility] - 0 0 [facility]PAT[facility]EN [facility] 33039 [facility] 0 0 FOR[facility] NAMED [facility] T VISIT LOW/MODER SEVERITY OFFICE 62281 JAMEL MCCULLOUGH OUTPATIEN 0 0 , ALLISON COOPER NEW 10 W W MINUTES EMERGENCY 28672 [facility] 9 9 [facility] INC T VISIT LIMITED/M INOR PROB HOSPITAL MARGARITA - 9 9 [facility] OUTPATIEN INC T EMERGENCY 78313 BRE PLASENCIA, 9 9 EMERGENCY HARSHAD [facility] SERVICES O T VISIT MODERATE ASSOCIATE SEVERITY S OFFICE 63476 [facility] 9 9 MEDICAL VIRAL T VISIT GROUP 15 MINUTES EMERGENCY 29783 [facility], 9 9 HOLLIS Milner [facility] MED CTR T VISIT MODERATE SEVERITY EMERGENCY 02742 [facility], 9 9 HOLLIS CHANDLER [facility] MED CTR T VISIT MODERATE SEVERITY EMERGENCY 25477 9 9 [facility] T VISIT LOW/MODER SEVERITY [facility]PITAL ST - 9 9 [facility] T OFFICE 56603 [place] LEEANNE SHARPE 9 9 MEDICAL VIRAL T VISIT GROUP 15 MINUTES [facility] 9 9 [facility] MEDICALCE NTER PERIODIC 22600 DHS/CO MARGARITA PREVENTIV 9 9 [facility] PATIENT BANK ACCT 18-39 YRS EMERGENCY 79418 [place], 8 8 HOLLIS Freedman [facility] MED CTR T VISIT MODERATE SEVERITY HOSPITAL M[facility]ARITA - 8 8 [facility] OUTPATIEN INC T EMERGENCY 04400 [facility] 8 8 [facility] T VISIT MODERATE SEVERITY OFFICE 62812 [facility] 8 8 N JR, T VISIT OBSTETRIC MARLENA 10 S AND MINUTES GYNECOLOG Y OFFICE 29991 [facility] L[facility] 8 8 MEDICAL VIRAL T VISIT GROUP 15 MINUTES OFFICE 96479 CHRIS CORTÉS OUTPATIEN 8 8 N JR T VISIT OBSTETRIC MARLENA 10 S AND MINUTES GYNECOLOG Y
--- OUTSIDE RECORDS SUMMARY | 2017-05-30 06:34 | External Medical Summary Rpt ---
Author Author , NATHANIEL Organization NATHANIEL Address Unknown Phone [email or web address] Care Team Providers Care Recording Studio Internship Name Role Phone MACK TORREZ MD, PSC, Unavailable Unavailable MACK TORREZ MD, PSC ARRIAGA ALL, ARRIAGA ALL Unavailable Unavailable ROSARIO III HENRIQUE, Unavailable Unavailable ROSARIO III HENRIQUE ROSARIO III HENRIQUE, Unavailable Unavailable ROSARIO III HENRIQUE [facility] Unavailable Unavailable SERVICE, [facility] Unavailable Unavailable SERVICE, [facility] KATHY BUNDY, Unavailable Unavailable KATHY [...] ZAHRA Unavailable Unavailable FABRICIO DUFF DERRICK, DUFF DERRIKC Unavailable Unavailable [facility] Unavailable [place], [facility] [place] [facility] [place] Un[place] [facility] [place] FRYMAN EUG, FRYMAN Unavailable Unavailable EUG DELBERT KATALINA, DELBERT Unavailable Unavailable [facility] Unavailable Unavailable [facility], [facility] JELANI KASPER, Unavailable Unavailable JELANI KASPER HARPER Unavailable Unavailable [facility] Unavailable Unavailable [facility] Unavailable Unavailable INC, [facility] [place] Unavailable Unavailable HOSPITAL, [facility] ALLISON MCCULLOUGH, Unavailable Unavailable ALLISON MCCULLOUGH [facility], Unavailable Unavailable [facility] CONSTANTINE CABRERA Unavailable Unavailable ACUNA TRA, ACUNA TRA Unavailable Unavailable RAMESH OSBORN, Unavailable Unavailable RAMESH OSBORN [facility] Unavailable Unavailable [facility], [facility] MARLENA CORTÉS JR, Unavailable [...] Unavailable Unavailable [facility], [facility] Unavailable Unavailable HOSPITAL, [facility] Unavailable Unavailable [facility], [facility] Unavailable [facility]available PHYSICIANS, [facility] PHYS[facility]ANS [facility] MANOJ, Unavailable Unavailable [facility] PURVI FAROOQ, Unavailable Unavailable FAROOQPURVI ROD [facility] # Unavailable Unavailable 4, [facility] Unavailable Unavailable #591, [facility] Unavailable Unavailable DEPT [facility], [facility] DEPT [facility] Unavailable Unavailable DEPT [facility] DEPT [facility] JOSE G MEDINA III, Unavailable Unavailable JOSE G MEDINA III ELISSA FABRICIO, ELISSA FABRICIO Unavailable Unavailable ELISSA FABRICIO, ELISSA FABRICIO Unavailable Unavailable Purpose Continuity of Care Document - 09-16-2007 through 2016 Problems Code Diagnosis DOS Provider Status [id number] OTHER LONG 10-20-[address] [facility] CURRENT INC DRUG THERAPY R928 OTH ABNORM 06-14-2016 [facility] IN[facility] ASS E FIND ON DX IMAG BREAST R0602 SHORTNESS 05-19-2016 [facility] OF BREATH [facility]ICAL IM[facility]ING ASS R4182 ALTERED 05-19-2016 [facility] STATUS SERVICE UNSPECIFIED [id number] POISON 05-19-2016 [facility] ACCIDENTAL SERVICE UNINTENTION AL INIT ENC P43708 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 03-06-2016 [facility], 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[facility] LLC GENERAL RTN W/O ABNORMAL FIND R102 PELVIC AND 02-04-2016 [facility] PERINEAL [facility] PAIN IMAGING ASS N926 IRREGULAR 01-26-2016 [facility] MENSTRUATIO PHYSICIANS N GROUP UNSPECIFIED N946 DYSMENORRHE 01-26-2016 [facility] A [facility] UNSPECIFIED INC N912 AMENORRHEA 01-21-2016 [facility] UNSPECIFIED PHYSICIANS, PLLC R509 FEVER 01-21-2016 [facility] UNSPECIFIED PHYSICIANS, PLLC Z720 TOBACCO USE 01-21-2016 [facility] INC J069 ACUTE UPPER 01-06-2016 ANA PHYSICIANS, RESPIRATORY [facility] INFECTION UNSPECIFIED 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 N6489 OTHER 07-12-2015 [facility] SPECIFIED MEDICAL DISORDERS IMAGING ASS OF BREAST 7242 LUMBAGO 04-27-2015 MACK TORREZ MD, PSC 7244 THORACIC/DEYVI 04-27-2015 ALEXANDRA CLARK MD, PSC NEURITIS/RA DICULITIS UNSPEC 5959 UNSPECIFIED 04-13-2015 [facility] CYSTITIS N [facility]ERGENCY PHYS 5990 URINARY 04-13-2015 [facility] TRACT N EMERGENCY INFECTION PHYS SITE NOT SPECIFIED 5589 OTH&UNSPEC 04-08-2015 [facility] ITIS&COLITI S 34507 ABDOMINAL 03-22-2015 [facility] [place] PAIN, RADIOLOGY UNSPECIFIED SITE 25518 ABDOMINAL 03-22-2015 [facility] PAIN RIGHT N EMERGENCY UPPER PHYS QUADRANT 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 6101 DIFFUSE 01-08-2015 [facility] CYSTIC [facility] MASTOPATHY INC 41683 LUMP OR 01-08-2015 [facility] MASS IN [facility] BREAST INC 77311 OTHER 01-08-2015 [facility] ABNORMAL MEDICAL FINDING IMAGING ASS RADIOLOGICA L EXAM BREAST 77532 UNSPECIFIED 12-31-2014 [facility] VAGINITIS PHYSICIANS AND GROUP VULVOVAGINI TIS 7231 CERVICALGIA 12-12-2014 [facility] 7241 PAIN IN 12-12-2014 [facility] THORACIC [facility] SPINE IM[facility] ASS 09983 INJURY OF 12-12-2014 [facility] FACE AND MEDICAL NECK OTHER IMAGING ASS AND UNSPECIFIED 44985 OTHER 12-12-2014 [facility] INJURY OF MEDICAL CHEST WALL IMAGING ASS 61078 OTHER 12-12-2014 [place] INJURY OF MEDICAL OTHER SITES IMAGING ASS OF TRUNK 0794 HUMAN 12-08-2014 [facility], PAPILLOMA LLC VIRUS IN CCE & UNS SITE 2331 CARCINOMA 12-08-2014 [facility] IN SITU OF PHYSICIANS CERVIX GROUP UTERI 96276 MODERATE 12-08-2014 [facility], DYSPLASIA LLC OF CERVIX V016 CONTACT 11-27-2014 [facility] WITH OR DISTRICT EXPOSURE TO [facility] DEPT VENEREAL NEFTALI DISEASES V7241 11-27-2014 [facility] EXAMINATION DISTRICT OR TEST HLTH DEPT NEGATIVE NEFTALI RESULT V692 PROBLEMS 11-20-2014 [facility] RELATED TO [facility] HIGH-RISK INC SEXUAL BEHAVIOR 6268 OTH D/O 10-13-2014 [facility] MENSTRUATIO PHYSICIANS N&OTH ABN GROUP BLEED FE GNT TRACT 34092 PAP SMER 09-29-2014 [facility], CERV W/HI LLC GRADE SQUAMOUS INTRAEPITH LES V2549 SURVEILLANC 09-29-2014 [facility] E OTH PREV DISTRICT PRSC HL DEPT CONTRACEPT NEFTALI METHOD V2689 OTHER 09-29-2014 [facility] SPECIFIED DISTRICT PROCREATIVE HLTH DEPT MANAGEMENT NEFTALI V7231 ROUTINE 09-29-2014 [facility], GYNECOLOGIC LLC AL EXAMINATION 9594 INJURY 09-24-2014 [facility] OTHER AND MEDICAL UNSPECIFIED IMAGING ASS HAND EXCEPT FINGER V163 FAMILY 07-08-2014 [facility] HISTORY OF [facility] MALIGNANT INC NEOPLASM OF BREAST 2409 UNSPECIFIED 04-23-2014 [facility] SINUSITIS PHYSICIANS GROUP 7881 DYSURIA 04-07-2014 JEFF HAYES V571 OTHER 02-18-2014 [facility] MANOJ 6959 UNSPECIFIED 01-18-2014 AMBER MARTINEZ ERYTHEMATOU S CONDITION 26933 PAIN IN 01-18-2014 AMBER MARTINEZ JOINT, FOREARM 7295 PAIN IN 01-18-2014 AMBER MARTINEZ SOFT TISSUES OF LIMB 72084 CONTUSION 01-18-2014 MEHRAN OF HAND DEL CASTILLO 20912 PAIN IN 12-25-2013 GARCIA JOINT VASYL PELVIC REGION AND THIGH 7246 DISORDERS 12-25-2013 GARCIA OF SACRUM VASYL 09276 OTHER 12-25-2013 GARCIA DISORDER OF VASYL COCCYX 6238 OTHER 10-15-2013 [facility] SPECIFIED NONINFLAMMA TORY DISORDER VAGINA 6824 CELLULITIS& 08-30-2013 [facility] ABSCESS OF HAND EXCEPT FINGERS&JEWELL MB 4619 ACUTE 05-22-2013 ST SINUSITIS, [facility] UNSPECIFIED PHYSICIANS 96527 SPRAIN AND 11-16-2012 ELISSA FABRICIO STRAIN OF UNSPECIFIED SITE OF HAND 9599 INJURY 11-16-2012 ROSARIO III OTHER AND HENRIQUE UNSPECIFIED UNSPECIFIED SITE 7088 OTHER 02-28-2010 GALA, SPECIFIED GILES B URTICARIA 04578 OTHER 02-28-2010 GALA, MALAISE AND GILES B FATIGUE 7862 COUGH 02-28-2010 GALA, GILES B 9951 ANGIONEUROT 02-28-2010 GALA, IC EDEMA GILES B NOT ELSEWHERE CLASSIFIED 7089 UNSPECIFIED 02-08-2010 FAROOQ, URTICARIA DON R 7842 SWELLING 02-08-2010 FAROOQ, MASS OR DON R LUMP IN HEAD AND NECK 27553 ESOPHAGEAL 01-16-2010 [facility] REFLUX [facility] INC 15672 CHEST PAIN 01-16-2010 ISABELLA UNSPECIFIED [facility] 06490 DENTAL 10-26-2009 JAMEL, CARIES ALLISON W EXTENDING INTO PULP 30699 TOOTH 10-26-2009 JAMEL, BROKEN FX ALLISON W DUE TO TRAUMA W/O MENTION COMP 1120 CANDIDIASIS 06-29-2009 [facility] 1121 CANDIDIASIS 06-29-2009 [facility] 5209 UNSPECIFIED 06-28-2009 ST [facility] DEVELOPMENT &ERUPTION 5259 UNSPECIFIED 06-28-2009 ST [facility] TEETH&SUPPO MED CTR RTING STRUCTURES 23884 UNSPECIFIED 06-25-2009 ST DENTAL [facility] 6260 ABSENCE OF 11-04-2008 [facility]EN[facility] N [facility] 2662 OTHER 08-25-2008 [facility] B-COMPLEX [facility]ICI[facility]CI[facility] ACCT 28888 MILD 08-25-2008 [facility] DYSPLASIA [facility] ACCT V2540 UNSPECIFIED 08-25-2008 [facility] HEALTH CONTRACEPTI [place] E [address]185 CONTACT 01-25-2008 [facility] DERMATITIS& [facility] OTHER INC ECZEMA DUE TO SUNBURN 94320 PAP SMER 01-02-2008 PATHOLOGY & CERV CYTOLOGY [...] % HI GL AN A IN C CO 59 03 04 10 5 00 EA [...] 17 17 83 TA 1 95 PH FL AR N- MA CA CY FF OF 50 CY -3 NT 25 HI -4 AN 0 A IN C ES 65 02 03 30 30 00 EA Ac CI 86 -2 -[address] ti TA 20 0- 4- 00 00 SI ve LO 37 20 20 47 DE CO 50 17 17 34 AM 1 73 [...] ve LO 37 20 20 47 DE CO 50 17 17 34 AM 1 73 [...] ve LO 37 20 20 46 DE CO 40 16 17 68 AM 1 78 [...] PS NT UL HI E AN A CO 00 03 03 0 12 3 EA [...] ti YL 15 SI 60 ER ve CO 02 20 20 DE SO ED 20 [...] 8- 3- 00 SI 92 Av ve CO 02 20 20 DE ai ED 20 [...] 00 10 5 WA 69 No Ac FL 00 -1 -2 .0 L- 60 t [...] DOS Code Location Performer Comment DRUG TEST 69973 [facility] PRSMV 7 [facility] QUAL DIR INC INC OPTICAL OBS PER DAY DRUG TEST G0480 [facility] DEFINITV [address] ID INC INC METH P DAY 1-7 DRUG CL DRUG TEST 55803 [facility] PRSMV 7 [facility] INSTRMNT INC INC CHEMISTRY ANALYZERS DRUG TST G0477 [facility] PRESUMP;C 6 [facility] PBL BEING INC INC READ DC OPT OBV ONLY DRUG TEST G0480 [facility] DEFINITV [address] ID INC INC METH P DAY 1-7 DRUG CL DIAGNOSTI G0206 NEGINMUSCOGEEEdward ZELAYA C 6 MEDICAL VASYL MAMMOGRAP IMAGING HY INCL ASS CAD WHEN PERF; UNI AMB A0427 [facility] SERVICE 6 AMBULANCE AMBULANCE ALS SERVICE SERVICE EMERGENCY TRANSPORT LEVEL 1 RADIOLOGI 93280 [place] CORINA ALL C EXAM 6 MEDICAL CHEST 2 IMAGING VIEWS ASS FRONTAL&L ATERAL GROUND A0425 [facility] PER SERVICE SERVICE STATUTE MILE CYTP C/V 49967 [facility], PICKLESIM AUTO THIN 6 LLC ER JR JEANINE LYR PREPJ SCR MNL RESCR PHYS 95378 [place] GARCIA TRANSVAGI 6 [place]ICAL [place] [address] [facility] THYROXINE 6 [facility] [place] [address] [facility] THYROID 6 [facility] STIMULATI INC INC NG HORMONE TSH THYROID 80925 [facility] HORM 6 [facility] UPTK/THYR INC INC OID HORMONE BINDING RATIO BLOOD 16701 [facility] COUNT 6 [facility] COMPLETE INC INC AUTO&AUTO DIFRNTL WBC COLLECTIO 81872 [facility] N VENOUS 6 [facility] BLOOD INC INC VENIPUNCT URE RADIOLOGI 98963 [place] CORINA ALL C EXAM 6 MEDICAL CHEST 2 IMAGING VIEWS ASS FRONTAL&L ATERAL SUSCEPTIB 37433 [facility] LTY STDY 6 [facility] ANTIMICRB INC INC IAL MICRO/AGA R DILUTJ URNLS DIP 27169 [facility] 6 [facility] STICK/TAB INC INC [place] [address] [facility] STREPTOCO 6 [facility] CCUS INC INC GROUP A CUL BACT 53832 [facility] XCPT 6 [facility] URINE INC INC BLOOD/STO OL AEROBIC ISOL CUL BACT 39881 [facility] AEROBIC 6 [facility] ADDL INC INC METHS DEFINITIV E EA ISOL URINE 26466 [facility] 6 [facility] TEST INC INC VISUAL COLOR CMPRSN METHS US BREAST 94905 M[facility] UNI REAL 5 [facility] TIME INC INC WITH IMAGE COMPLETE US BREAST 58818 NEGINMUSCOGEEEdward GARCIA UNI REAL 5 MEDICAL VASYL TIME IMAGING WITH ASS IMAGE LIMITED URINE 63402 [facility] 5 [facility] VISUAL COLOR CMPRSN METHS SUSCEPTIB 00114 [facility] LTY STDY 5 [facility] ANTIMICRB INC INC IAL MICRO/AGA R DILUTJ CULTURE 48876 [facility] BACTERIAL 5 [facility] INC INC QUANTTATI VE COLONY COUNT URINE CULTURE 35569 [facility] BCT 5 [facility] ISOL&PRSM [place] [address] [facility] [place] GENTILE ABDOMEN & 5 RADIOLOGY LUTHER PELVIS W/CONTRAS T MATERIAL US BREAST 21164 [facility] UNI REAL 5 [facility] TIME INC INC WITH IMAGE COMPLETE US BREAST 65006 [facility] ARRIAGA ALL UNI REAL 5 MEDICAL [place] [address] [facility] GARCIA THORACIC 5 MEDICAL VASYL SPINE W/[place] [address] [facility] GARCIA CERVICAL 5 MEDICAL VASYL SPINE W/O IMAGING CONTRAST ASS MATERIAL CT LUMBAR 09018 [place] GARCIA SPINE 5 MEDICAL VASYL W/O IMAGING CONTRAST ASS MATERIAL RADIOLOGI 61885 [facility] GARCIA C EXAM 5 MEDICAL VASYL CHEST 2 IMAGING VIEWS ASS FRONTAL&L ATERAL RADIOLOGI 24172 [place] GARCIA C 5 MEDICAL VASYL EXAMINATI IMAGING ON PELVIS ASS 1/2 VIEWS L[place]EL V [address]476 [facility], PICKLESIM SURG 5 [facility] ER [facility] PATHOLOGY GROSS&KATALINA ROSCOPIC EXAM COLPOSCOP 15269 [facility] GARCIA Y CERVIX 5 PHYSICIAN LIZZETTE VAG ELTRD S GROUP CONIZATIO N CERVIX URINE 88339 [facility] GARCIA 5 PHYSICIAN LIZZETTE TEST S GROUP VISUAL COLOR CMPRSN METHS URINE 04074 [facility] TEST [facility] DEPT HL DEPT VISUAL NEFTALI NEFTALI COLOR CMPRSN METHS IADNA 94013 [facility] NEISSERIA 5 [facility] DISTRICT [facility] DEPT [facility] DEPT GONORRHOE NEFTALI NEFTALI AE AMPLIFIED PROBE TQ IADNA 19835 [facility] CHLAMYDIA 5 [facility] DISTRICT [facility] DEPT [facility] DEPT TRACHOMAT NEFTALI NEFTALI IS AMPLIFIED PROBE TQ IADNA 43174 [facility] CHLAMYDIA 5 [facility] INC INC TRACHOMAT IS AMPLIFIED PROBE TQ IADNA 64542 [facility] NEISSERIA 5 [facility] INC INC GONORRHOE [place] I [address] [facility], ELMIRA TER SURG 5 [facility] PATHOLOGY [place] [address] [facility], [facility] SURG 5 [facility] PATHOLOGY GROSS&KATALINA ROSCOPIC EXAM COLPOSCOP 86552 [facility] GARCIA Y CERVIX 5 PHYSICIAN LIZZETTE BX CERVIX S GROUP & ENDOCRV CURRETAGE SUSCEPTIB 30179 [facility] LTY STDY 5 [facility] ANTIMICRB INC INC IAL MICRO/AGA R DILUTJ CULTURE 90251 [facility] BACTERIAL 5 [facility] INC INC QUANTTATI VE COLONY COUNT URINE CULTURE 84081 [facility] BCT 5 [facility] ISOL&PRSM INC INC PTV ID ISOLATE EA URINE URINE 43989 [facility] 5 PHYSICIAN PHYSICIAN TEST S GROUP S GROUP VISUAL COLOR CMPRSN METHS URINE 09163 [facility] TEST [facility] DEPT [facility] DEPT VISUAL NEFTALI NEFTALI COLOR CMPRSN METHS INJECTION J1050 [facility] MEDROXYPR [facility] DEPT [facility] DEPT OGESTERON NEFTALI NEFTALI E ACETATE 1 MG CYTP 96621 [facility], BRE CERVICAL/ 5 [facility] KAI VAGINAL REQ INTERP PHYSICIAN CONTRACEP A4267 [facility] TIVE 5 DISTRICT DISTRICT SUPPLY HLTH DEPT HLTH DEPT CONDOM NEFTALI NEFTALI MALE EACH IADNA 22057 [facility] CHLAMYDIA 5 DISTRICT DISTRICT HLTH DEPT HLTH DEPT TRACHOMAT NEFTALI NEFTALI IS AMPLIFIED PROBE TQ IADNA 70019 [facility] NEISSERIA 5 DISTRICT DISTRICT HL DEPT HLTH DEPT GONORRHOE NEFTALI NEFTALI AE AMPLIFIED PROBE TQ CYTP 45270 [facility], BRE CERV/VAG 5 [facility] KAI AUTO THIN LAYER PREP MNL SCREEN RADEX 42441 [facility] GARCIA HAND 5 MEDICAL VASYL MINIMUM 3 IMAGING VIEWS ASS US BREAST 69845 [facility] REAL 4 [facility] TIME INC INC W/IMAGE DOCUMENTA TION MRI 73180 ACUNA TRA ACUNA TRA SPINAL 4 CANAL LUMBAR W/O CONTRAST MATERIAL THERAPEUT 90350 [facility] IC PX 1/> 4 [facility] MANOJ MANOJ EACH 15 MIN EXERCISES APPLICATI [address] MODALITY MANOJ MANOJ 1/> AREAS HOT/COLD PACKS APPLICATI [address] MODALITY MANOJ MANOJ 1/> AREAS HOT/COLD PACKS THERAPEUT 99029 [facility]. IC PX 1/> [facility] MANOJ MANOJ EACH 15 MIN EXERCISES THERAPEUT 11368 [facility] IC PX 1/> 4 [facility] MANOJ MANOJ EACH 15 MIN EXERCISES THERAPEUT 97999 [facility]. IC PX 1/> 4 [facility] MAN[facility]J MANOJ EACH 15 MIN EXERCISES APPLICATI [address] MODALITY MANOJ MANOJ 1/> AREAS HOT/COLD PACKS APPLICATI [address] MODALITY MANOJ MANOJ 1/> AREAS HOT/COLD PACKS THERAPEUT [address] ST[address] IC PX 1/> 4 [facility] MANOJ MANOJ EACH 15 MIN EXERCISES PHYSICAL 94083 . . THERAPY 4 [facility] EVALUATIO MANOJ MANOJ N THERAPEUT 60162 [facility]. IC PX 1/> 4 [facility] MANOJ MANOJ EACH 15 MIN EXERCISES APPLICATI [address]146 . ST. ON 4 [facility] MODALITY MANOJ MANOJ 1/> AREAS HOT/COLD PACKS RADEX 24835 AM[facility] AMBER WRIST 4 MAR MAR COMPLETE MINIMUM 3 VIEWS RADEX 93699 AM[facility] AMBER HAND 4 MAR MAR MINIMUM 3 VIEWS RADEX 14644 [facility] SACRUM & 4 [facility] COCCYX INC INC MINIMUM 2 VIEWS RADIOLOGI 02311 [facility] C 4 [facility] EXAMINATI INC INC ON PELVIS 1/2 VIEWS RADEX 70970 [facility] SPINE 4 [facility] LUMBOSACR INC INC AL MINIMUM 4 [place] [address] [facility] THYROID 4 [facility] STIMULATI [place] [address] [facility] THYROXINE 4 [facility] TOTAL INC INC COMPREHEN 93819 [facility] SIVE 4 [facility] METABOLIC INC INC PANEL SEDIMENTA 40610 [facility] TION RATE 4 [facility] RBC INC INC NON-AUTOM ATED HEMOGLOBI 10816 [facility] N 4 [facility] GLYCOSYLA INC INC RONA A1C BLOOD 58344 [facility] COUNT 4 [facility] COMPLETE INC INC AUTO&AUTO DIFRNTL WBC GONADOTRO 26726 [facility] PIN 4 [facility] CHORIONIC INC INC QUALITATI VE LIPID 56645 [facility] PANEL 4 [facility] INC INC RADEX 96011 ROSARIO PONCE FINGR 3 III HENRIQUE III HENRIQUE MINIMUM 2 [place] [address] [facility] THYROXINE 0 [facility] [place] [address] M[facility] THYROID 0 [facility] STIMULATI INC INC NG HORMONE TSH SEDIMENTA 78950 [facility] TION RATE 0 [facility] RBC INC INC NON-AUTOM ATED DEMO&/MACRINA 99977 GALA, GALA, L OF PT 0 GILES B GILES B UTILIZ AERSL GEN/NEB/I NHLR/IP ANTINUCLE 91464 [facility] AR 0 [facility] ANTIBODIE INC INC S SUZETTE MICROSOMA 16292 [facility] L 0 [facility] ANTIBODIE INC INC S EACH BLOOD 02069 [facility] A[facility] COUNT 0 [facility] COMPLETE INC INC AUTO&AUTO DIFRNTL WBC BRNCDILAT 36459 GALA, GALA, RSPSE 0 GILES B GILES B SPMTRY PRE&POST- BRNCDILAT ADMN RHEUMATOI 21542 [facility] D FACTOR 0 [facility] QUANTITAT INC INC ANA MARÍA ANTIBODY 37754 [facility] HELICOBAC 0 [facility] TER INC INC PYLORI THER 60795 JAMEL MCCULLOUGH PROPH/DX 0 , ALLISON COOPER NJX IV W W PUSH SINGLE/1S T SBST/DRUG DEEP D9220 JAMEL MCCULLOUGH SEDATION/ 0 , ALLISON COOPER GENERAL W W ANESTHESI A-1ST 30 MINUTES ORTHOPANT 37467 JAMEL MCCULLOUGH OGRAM 0 , ALL[facility] COOPER W SUSCEPTIB 68832 [facility] ALEMANON LTY STDY 9 [facility] ANTIMICRB INC INC IAL MICRO/AGA R DILUTJ URNLS DIP 27477 [facility] 9 [facility] STICK/TAB INC INC LET REAGENT AUTO MICROSCOP Y CULTURE 75579 [facility] BCT 9 [facility] ISOL&PRSM INC INC PTV ID ISOLATE EA URINE CULTURE 67288 [facility] BACTERIAL 9 [facility] INC INC QUANTTATI VE COLONY COUNT URINE CULTURE 992[address] BACTERIAL 9 [facility] QUANTTATI MEDICALCE MEDICALCE VE COLONY NTER NTER COUNT URINE CUL BACT 86738 [facility] AEROBIC 9 [place] ADDL METHS MEDICALCE MEDICALCE DEFINITIV NTER NTER E EA ISOL THERAPEUT 89939 [facility] PROPHYLAC GROUP TIC/DX INJECTION SUBQ/IM URINE 58094 [facility] TEST GROUP VISUAL COLOR CMPRSN METHS URNLS DIP 34621 [facility] STICK/TAB GROUP LET RGNT AUTO W/O MICROSCOP Y SUSCEPTIB 85809 [facility] LTY STDY 9 [place] ANTIMICRB IAL MEDICALCE MEDICALCE MICRO/AGA NTER NTER R DILUTJ INJECTION [id number] [facility] MED[facility] VIRAL CEFTRIAXO GROUP NE SODIUM PER 250 MG IADNA 00575 [facility] CHLAMYDIA 9 [facility] TRACHOMAT BANK ACCT IS AMPLIFIED PROBE TQ CONTRACEP [id number] [facility] TIVE 9 [facility] SUPPLY [facility] CONDOM BANK ACCT MALE EACH CYTP 98245 [facility] CERV/VAG 9 [facility] AUTO THIN [facility] LAYER BANK ACCT PREP MNL SCREEN IADNA 92000 [facility] [place] NEISSERIA 9 [facility] GONORRHOE BANK ACCT AE AMPLIFIED PROBE TQ URINE 73820 [facility] AV[facility]A 8 [facility] TEST INC INC VISUAL COLOR CMPRSN METHS IADNA 75521 PATHOLOGY PATHOLOGY [place] 8 & & VIRUS CYTOLOGY CYTOLOGY HUMAN LAB LAB AMPLIFIED PROBE TQ CYTP 29799 PATHOLOGY PATHOLOGY CERVICAL/ 8 & & VAGINAL CYTOLOGY CYTOLOGY REQ LAB LAB INTERP PHYSICIAN CYTP C/V 40531 PATHOLOGY PATHOLOGY AUTO THIN 8 & & LYR CYTOLOGY CYTOLOGY PREPJ SCR LAB LAB MNL RESCR PHYS CYTP C/V 53287 PATHOLOGY PATHOLOGY AUTO THIN 8 & & LYR CYTOLOGY CYTOLOGY PREPJ SCR LAB LAB MNL RESCR PHYS Encounters Encounter Start End Date Code Location Performer Type Date HOSPITAL [facility] - 7 7 [facility] OUTPATIEN [facility] MARGARITA - 7 7 [facility] PERIODIC 33746 [facility] PREVENTIV 6 6 PHYSICIAN E MED EST S GROUP PATIENT 18-39 YRS HOSPITAL MARG[facility] 6 6 [facility] 43633 [facility] OUTPATIEN 6 6 PHYSICIAN T VISIT S GROUP 25 MINUTES HOSPITAL M[facility] 6 6 [facility] 30332 [facility] 6 6 [facility] T VISIT HIGH/URGE NT SEVERITY EMERGENCY 98461 MARGARITA 6 6 [facility] T VISIT LOW/MODER SEVERITY HOSPITAL MARGARITA - 6 6 [facility] 99698 ANA [place] [facility] 6 6 PHYSICIAN DEPARTMEN S, [facility] T VISIT MODERATE SEVERITY EMERGENCY 21470 MARG[facility]ITA 6 6 [facility] T VISIT LIMITED/M INOR PROB HOSPITAL MARGARITA - 5 5 [facility] 81276 MACK [facility] 5 5 MD SHAN, T VISIT PSC 10 MINUTES EMERGENCY 96615 [facility] CELLARO 5 5 ROXANNE - YORBA [facility] EMERGENCY PAT T VISIT PHYS HIGH/URGE NT SEVERITY OFFICE 87406 [facility] 5 [facility] T VISIT HOSP[facility] 15 MINUTES HOSPITAL MARGARITA - 5 5 [facility] 74980 [facility] DEPT 5 5 ROXANNE RUI VISIT EMERGENCY HIGH PHYS SEVERITY& THREAT FUNCJ OFFICE 71845 [facility] OUTPATIEN 5 5 [facility] T VISIT INC 10 MINUTES OFFICE 42813 HALLE TORREZ ANJ OUTPATIEN 5 5 MD [facility] 30 MINUTES [facility] MARGARITA - 5 5 [facility] OUTPATIEN INC [facility]OSPITAL [facility] - 5 5 [facility] T OFFICE 71089 [facility] OUTPATI[facility] 5 5 PHYSICIAN T VISIT S GROUP 15 MINUTES OFFICE 32698 [facility] T VISIT [facility] DEPT [facility] DEPT 10 [facility] M[facility] - 5 5 [facility] OUTPATIEN INC [facility] MARGARITA - 5 5 [facility]PAT[facility] INC T OFFICE 39981 [facility] OUTPATIEN 5 5 PHYSICIAN [place] T VISIT S GROUP 15 MINUTES INITIAL 54286 [facility] PRE[facility]IV 5 5 [facility] DEPT [facility] DEPT MEDICINE [facility] PT AGE 18-39YRS [facility] MARGARITA - 4 4 [facility] OUTPATIEN INC T OFFICE 13596 [facility] OUTPATIEN 4 4 PHYSICIAN [place] T VISIT S GROUP 15 MINUTES OFFICE 43886 [facility] OUTPATIEN 4 4 PHYSICIAN [place] T VISIT S GROUP 15 MINUTES EMERGENCY 26713 RICHARDSO RICHARDSO 4 4 N FREDDY N FREDDY DEPARTMEN T VISIT MODERATE SEVERITY OFFICE 42240 ACUNA TRA ACUNA TRA OUTPATIEN 4 4 T VISIT 15 MINUTES OFFICE 79775 AC[facility] TRA ACUNA TRA OUTPATIEN 4 4 T VISIT [address] - 4 4 [facility] - 4 4 [facility] EMERGENCY 73102 MEHRAN LAURENT 4 4 [facility] MODERATE SEVERITY OFFICE 93089 ACUNA TRA ACUNA TRA CONSULTAT 4 4 ION NEW/ESTAB PATIENT 40 MIN HOSPITAL MARGARITA - 4 4 [facility] OUTPATIEN [facility] HOSPITAL MARGARITA - 4 4 [facility] OUTPATIEN [facility] EMERGENCY 08677 [facility] TRO 4 4 DEPARTMEN T VISIT HIGH/URGE NT SEVERITY EMERGENCY 39029 [facility] TRO 4 4 DEPARTMEN T VISIT MODERATE SEVERITY OFFICE 19404 [facility] OUTPATIEN 3 3 HOLLIS T VISIT 15 PHYSICIAN MINUTES S EMERGENCY 44190 ZAHRA SWEENEY 3 3 FABRICIO FABRICIO [facility] T VISIT HIGH/URGE NT SEVERITY EMERGENCY 49062 LEISSA FABRICIO ELISSA FABRICIO 3 3 DEPARTMEN T VISIT MODERATE SEVERITY [facility]OSPITAL [facility] - 0 0 [facility] OFFICE 49723 GALA, GALA, CONSULTAT 0 0 GILES B GILES B ION NEW/ESTAB PATIENT 60 MIN OFFICE 23555 CAPRI FAROOQ OUTPATIEN 0 0 DON R DON R T VISIT 15 MINUTES EMERGENCY 46591 BRE MEDINA 0 0 EMERGENCY III, DEPARTMEN SERVICES JOSE G T VISIT HIGH/URGE ASSOCIATE NT S SEVERITY [facility]OSPITAL M[facility] - 0 0 [facility] OUTPATIEN [facility] T EMERGENCY 61471 MARGARITA 0 0 [facility] T VISIT LOW/MODER SEVERITY OFFICE 40456 JAMEL MCCULLOUGH OUTPATIEN 0 0 , ALLISON COOPER NEW 10 W W MINUTES EMERGENCY 73686 [facility] 9 9 [facility] INC T VISIT LIMITED/M INOR PROB HOSPITAL MARGARITA - 9 9 [facility] OUTPATIEN INC T EMERGENCY 51509 BRE PLASENCIA, 9 9 EMERGENCY HARSHAD [facility] SERVICES O T VISIT MODERATE ASSOCIATE SEVERITY S OFFICE 22877 [facility] L[facility] 9 9 MEDICAL VIRAL T VISIT GROUP 15 MINUTES EMERGENCY 69016 [facility], 9 9 HOLLIS Milner [facility] MED CTR T VISIT MODERATE SEVERITY EMERGENCY 24159 [facility], 9 9 HOLLIS CHANDLER [facility] MED CTR T VISIT MODERATE SEVERITY EMERGENCY 32593 9 9 [facility] T VISIT LOW/MODER SEVERITY [facility] ST - 9 9 [facility] T OFFICE 87805 [place] LEEANNE SHARPE 9 9 MEDICAL VIRAL T VISIT GROUP 15 MINUTES [facility] RUST 9 9 [facility] MEDICALCE NTER PERIODIC 26690 DHS/CO MARGARITA PREVENTIV 9 9 [facility] E PATIENT BANK ACCT 18-39 YRS EMERGENCY 53404 [facility], 8 8 HOLLIS Freedman [facility] MED CTR T VISIT MODERATE SEVERITY HOSPITAL MARGARITA - 8 8 [facility] OUTPATIEN INC T EMERGENCY 33343 MARGARITA 8 8 [facility] T VISIT MODERATE SEVERITY OFFICE 55183 CHRIS CORTÉS [facility] 8 8 N JR, T VISIT OBSTETRIC MARLENA 10 S AND MINUTES GYNECOLOG Y OFFICE 20879 [facility] LEEANNE SHARPE 8 8 MEDICAL VIRAL T VISIT GROUP 15 MINUTES OFFICE 07529 CHRIS CORTÉS OUTPATIEN 8 8 N JR T VISIT OBSTETRIC MARLENA 10 S AND MINUTES GYNECOLOG Y
--- OUTSIDE RECORDS SUMMARY | 2017-05-30 06:35 | External Medical Summary Rpt ---
Author Author , NATHANIEL ARMSTRONG Address Unknown Phone [email or web address] Immunization Name Date Rout CVX Reac Dose Comm Prov Is Faci e tion ent ider Refu lity Give sed n HPV4 11-1 62 999 Hist H141 No H141 4-20 oric (Gar 11 al dasi Info l) rmat ion - Sour ce Unsp ecif ied HPV4 08-0 62 999 Hist H141 No H141 5-20 oric (Gar 11 al dasi Info l) rmat ion - Sour ce Unsp ecif ied Tdap 05-0 115 999 Hist H141 No H141 , 4-20 oric Adso 11 al rbed Info rmat ion - Sour ce Unsp ecif ied MCV4 05-0 147 999 Hist H141 No H141 UF 4-20 oric 11 al Info rmat ion - Sour ce Unsp ecif ied HPV4 05-0 62 999 Hist H141 No H141 4-20 oric (Gar 11 al dasi Info l) rmat ion - Sour ce Unsp ecif ied
--- OUTSIDE RECORDS SUMMARY | 2017-05-30 06:35 | External Medical Summary Rpt ---
Author Author , NATHANIEL ARMSTRONG Address Unknown Phone [email or web address] Immunization Name Date Rout CVX Reac Dose [...]
--- OUTSIDE RECORDS SUMMARY | 2017-05-30 06:36 | External Medical Summary Rpt ---
Author Author NATHANIEL Gaming, [employer] Organization [employer] Address Unknown Phone Unavailable Results CBC W Auto Differential panel in Blood Observa Value Referen Units Interpr Notes Date tion ce etation Range Basophils 0 - 0.2 K/MM3 Normal No Sep 18 informati 2017 7:19 [#/volume on in PM ] in source Blood by data Automated count Basophils 0.1 - 2.0 % Normal No Sep 18 /100 informati 2017 7:19 leukocyte on in PM s in source Blood by data Automated count Eosinophi 0.0 - 0.4 K/mm3 Normal No Sep 18 ls informati 2017 7:19 [#/volume on in PM ] in source Blood by data Automated count Eosinophi 0.1 - % Normal No Sep 18 ls/100 12.0 informati 2017 7:19 leukocyte on in PM s in source Blood by data Automated count Granulocy 1.8 - 7.8 K/mm3 Normal No Sep 18 min informati 2017 7:19 [#/volume on in PM ] in source Blood by data Automated count Granulocy 37.0 - % Normal No Sep 18 min/100 80.0 informati 2017 7:19 leukocyte on in PM s in source Blood by data Automated count Hematocri 37.0 - % Normal No Sep 18 t [Volume 47.0 informati 2016 7:19 on in PM Fraction] source of Blood data Hemoglobi 12.2 - g/dL No No Sep 18 n 16.2 informati informati 2017 7:19 [Mass/vol on in on in PM ume] in source source Blood data data Lymphocyt 0.7 - 4.5 K/mm3 Normal No Sep 18 es informati 2017 7:19 [#/volume on in PM ] in source Unspecifi data ed specimen by Automated count Lymphocyt 10 - 50.0 % Normal No Sep 18 es informati 2017 7:19 [#/volume on in PM ] in source Unspecifi data ed specimen by Automated count Erythrocy 27 - 31.2 pg Normal No Sep 18 te mean informati 2016 7:19 corpuscul on in PM ar source hemoglobi data n [Entitic mass] Erythrocy 31.8 - g/dl Normal No Sep 18 te mean 35.4 informati 2017 7:19 corpuscul on in PM ar source hemoglobi data n concentra tion [Mass/vol ume] by Automated count Erythrocy 82.2 - fl Normal No Sep 18 te mean 97.8 informati 2016 7:19 corpuscul on in PM ar volume source [Entitic data volume] by Automated count Monocytes 0.1 - 1.0 K/mm3 Normal No Sep 18 informati 2016 7:19 [#/volume on in PM ] in source Blood by data Automated count Monocytes 1.7 - 9.3 % Normal No Sep 18 /100 informati 2016 7:19 leukocyte on in PM s in source Blood by data Automated count Platelet 7.4 - fl Low No Sep 18 mean 10.4 informati 2016 7:19 volume on in PM [Entitic source volume] data in Blood by Automated count Platelets 142 - 424 K/mm3 Normal No Sep 18 informati 2016 7:19 [#/volume on in PM ] in source Blood data Erythrocy 4.2 - 5.4 M/mm3 Normal No Sep 18 min informati 2017 7:19 [#/volume on in PM ] in source Amniotic data fluid Erythrocy 11.5 - % Normal No Sep 18 te 17.5 informati 2016 7:19 distribut on in PM ion width source [Entitic data volume] by Automated count Leukocyte 4.8 - K/MM3 Normal No Sep 18 s 10.8 informati 2016 7:19 [#/volume on in PM ] in source Blood data CRP Observa Value Referen Units Interpr Notes Date tion ce etation Range CRP 0.0 - 0.9 MG/DL High No Sep 18 informati 2016 7:19 on in PM source data Hepatic function 2000 panel in Serum or Plasma Observa Value Referen Units Interpr Notes Date tion ce etation Range Albumin 3.4 - 5.0 gm/dL High No Apr 16 [Mass/vol informati 2017 3:58 ume] in on in PM Serum or source Plasma data Alkaline 46 - 116 U/L Normal No Apr 16 phosphata informati 2016 3:58 se on in PM [Enzymati source c data activity/ volume] in Serum or Plasma Bilirubin 0.0 - 0.2 mg/dL Normal No Apr 16 .direct informati 2017 3:58 [Mass/vol on in PM ume] in source Serum or data Plasma Bilirubin 0 - 0.9 mg/dL Normal No Apr 16 .indirect informati 2017 3:58 on in PM [Mass/vol source ume] in data Serum or Plasma Bilirubin 0.2 - 1.0 mg/dL Normal No Apr 16 .total informati 2017 3:58 [Mass/vol on in PM ume] in source Serum or data Plasma Aspartate 15 - 37 U/L High No Apr 16 informati 2017 3:58 aminotran on in PM sferase source [Enzymati data c activity/ volume] in Serum or Plasma Alanine 12 - 78 U/L High No Apr 16 aminotran informati 2016 3:58 sferase on in PM [Enzymati source c data activity/ volume] in Serum or Plasma Protein 6.4 - 8.2 gm/dL High No Apr 16 [Mass/vol informati 2017 3:58 ume] in on in PM Serum or source Plasma data CHLAMYDIA AND GONORRHEA TESTING Observa Value Referen Units Interpr Notes Date tion ce etation Range COLLECT A. No No No No Nov 27 OR JULIO, informa informa informa informa 2015 RN tion in tion in tion in tion in 2:00 PM source source source source data data data data ETHNICI WHITE, No No No No Nov 27 TY NON-HIS informa informa informa informa 2015 PANIC tion in tion in tion in tion in 2:00 PM source source source source data data data data KIT No No No No Nov 27 EXPIRAT 015 informa informa informa informa 2015 ION tion in tion in tion in tion in 2:00 PM DATE source source source source data data data data SYMPTOM NO No No No No Nov 27 S informa informa informa informa 2015 tion in tion in tion in tion in 2:00 PM source source source source data data data data REASON VOLUNTE No No No No Nov 27 FOR ER/MEDI informa informa informa informa 2015 REQUEST HYUN tion in tion in tion in tion in 2:00 PM PROBLEM source source source source data data data data SPECIME URINE No No No No Nov 27 N informa informa informa informa 2015 SOURCE tion in tion in tion in tion in 2:00 PM source source source source data data data data PREGNAN NO No No No No Nov 27 T informa informa informa informa 2015 tion in tion in tion in tion in 2:00 PM source source source source data data data data CHART [id number]- No No No No Nov 27 NUMBER [id number] informa informa informa informa 2015 tion in tion in tion in tion in 2:00 PM source source source source data data data data Chlamyd NEGATIV No No No NEGATIV Nov 27 ia E informa informa informa E 2015 trachom tion in tion in tion in RESULT= 2:00 PM atis source source source WITHIN rRNA data data data NORMAL [Presen ce] in LIMITSP Unspeci OSITIVE fied specime RESULT= n by Probe & ABNORMA target LEQUIVO HYUN amplifi RESULT= cation method INDETER MINATEU NSATISF ACTORY RESULT= INVALID Neisser NEGATIV No No No NEGATIV Nov 27 ia E informa informa informa E 2015 gonorrh tion in tion in tion in RESULT= 2:00 PM oeae source source source WITHIN rRNA data data data NORMAL [Presen ce] in LIMITSP Unspeci OSITIVE fied specime RESULT= n by Probe & ABNORMA target LEQUIVO HYUN amplifi RESULT= cation method INDETER MINATEU NSATISF ACTORY RESULT= INVALID THE APTIMA COMBO 2 ASSAY IS NOT INTENDE D FOR THE EVALUAT ION OF SUSPECT EDSEXUA L ABUSE OR FOR OTHER MEDICO- LEGAL INDICAT IONS. FOR THOSE PATIENT S FORWHOM A FALSE POSITIV E RESULT MAY HAVE ADVERSE PSYCHO- SOCIAL IMPACT, [facility].\.br \This report contain s patient informa tion that must be protect ed in accorda nce with the Health Insuran ce Portabi lity and Account ability Act. CHLAMYDIA AND GONORRHEA TESTING Observa Value Referen Units Interpr Notes Date tion ce etation Range COLLECT A. No No No No Nov 27 OR JULIO, informa informa informa informa 2015 RN tion in tion in tion in tion in 2:00 PM source source source source data data data data ETHNICI WHITE, No No No No Nov 27 TY NON-HIS informa informa informa informa 2015 PANIC tion in tion in tion in tion in 2:00 PM source source source source data data data data KIT No No No No Nov 27 EXPIRAT 015 informa informa informa informa 2015 ION tion in tion in tion in tion in 2:00 PM DATE source source source source data data data data SYMPTOM NO No No No No Nov 27 S informa informa informa informa 2015 tion in tion in tion in tion in 2:00 PM source source source source data data data data REASON VOLUNTE No No No No Nov 27 FOR ER/MEDI informa informa informa informa 2015 REQUEST HYUN tion in tion in tion in tion in 2:00 PM PROBLEM source source source source data data data data SPECIME URINE No No No No Nov 27 N informa informa informa informa 2015 SOURCE tion in tion in tion in tion in 2:00 PM source source source source data data data data PREGNAN NO No No No No Nov 27 T informa informa informa informa 2015 tion in tion in tion in tion in 2:00 PM source source source source data data data data CHART [id number]- No No No No Nov 27 NUMBER [id number] informa informa informa informa 2015 tion in tion in tion in tion in 2:00 PM source source source source data data data data Chlamyd Pending No No No No Nov 27 ia informa informa informa informa 2015 trachom tion in tion in tion in tion in 2:00 PM atis source source source source rRNA data data data data [Presen ce] in Unspeci fied specime n by Probe & target amplifi cation method Neisser Pending No No No \.br\Th Nov 27 ia informa informa informa is 2015 gonorrh tion in tion in tion in report 2:00 PM oeae source source source contain rRNA data data data s [Presen patient ce] in Unspeci informa fied tion specime that n by must be Probe & target protect ed in amplifi accorda cation nce method with the Health Insuran ce Portabi lity and Account ability Act. CHLAMYDIA AND GONORRHEA TESTING Observa Value Referen Units Interpr Notes Date tion ce etation Range COLLECT M.F. No No No No Sep 29 OR RODRIGES, informa informa informa informa 2015 VOLUNTEER SPECIALIST tion in tion in tion in tion in 9:00 AM source source source source data data data data ETHNICI WHITE, No No No No Sep 29 TY NON-HIS informa informa informa informa 2015 PANIC tion in tion in tion in tion in 9:00 AM source source source source data data data data KIT No No No No Sep 29 EXPIRAT 015 informa informa informa informa 2015 ION tion in tion in tion in tion in 9:00 AM DATE source source source source data data data data SYMPTOM NO No No No No Sep 29 S informa informa informa informa 2015 tion in tion in tion in tion in 9:00 AM source source source source data data data data REASON INITIAL No No No No Sep 29 FOR FAMILY informa informa informa informa 2015 REQUEST tion in tion in tion in tion in 9:00 AM PLANNIN source source source source G VISIT data data data data SPECIME FEMALE No No No No Sep 29 N ENDOCER informa informa informa informa 2015 SOURCE VICAL tion in tion in tion in tion in 9:00 AM source source source source data data data data PREGNAN NO No No No No Sep 29 T informa informa informa informa 2015 tion in tion in tion in tion in 9:00 AM source source source source data data data data CHART [id number]- No No No No Sep 29 NUMBER [id number] informa informa informa informa 2015 tion in tion in tion in tion in 9:00 AM source source source source data data data data Chlamyd POSITIV No No No NEGATIV Sep 29 ia E informa informa informa E 2015 trachom tion in tion in tion in RESULT= 9:00 AM atis source source source WITHIN rRNA data data data NORMAL [Presen ce] in LIMITSP Unspeci OSITIVE fied specime RESULT= n by Probe & ABNORMA target LEQUIVO HYUN amplifi RESULT= cation method INDETER MINATEU NSATISF ACTORY RESULT= INVALID Neisser NEGATIV No No No NEGATIV Sep 29 ia E informa informa informa E 2015 gonorrh tion in tion in tion in RESULT= 9:00 AM oeae source source source WITHIN rRNA data data data NORMAL [Presen ce] in LIMITSP Unspeci OSITIVE fied specime RESULT= n by Probe & ABNORMA target LEQUIVO HYUN amplifi RESULT= cation method INDETER MINATEU NSATISF ACTORY RESULT= INVALID THE APTIMA COMBO 2 ASSAY IS NOT INTENDE D FOR THE EVALUAT ION OF SUSPECT EDSEXUA L ABUSE OR FOR OTHER MEDICO- LEGAL INDICAT IONS. FOR THOSE PATIENT S FORWHOM A FALSE POSITIV E RESULT MAY HAVE ADVERSE PSYCHO- SOCIAL IMPACT, [facility] NG.\.br \This report contain s patient informa tion that must be protect ed in accorda nce with the Health Insuran ce Portabi lity and Account ability Act. CHLAMYDIA AND GONORRHEA TESTING Observa Value Referen Units Interpr Notes Date tion ce etation Range COLLECT M.F. No No No No Sep 29 OR RODRIGES, informa informa informa informa 2015 VOLUNTEER SPECIALIST tion in tion in tion in tion in 9:00 AM source source source source data data data data ETHNICI WHITE, No No No No Sep 29 TY NON-HIS informa informa informa informa 2014 PANIC tion in tion in tion in tion in 9:00 AM source source source source data data data data KIT No No No No Sep 29 EXPIRAT 015 informa informa informa informa 2015 ION tion in tion in tion in tion in 9:00 AM DATE source source source source data data data data SYMPTOM NO No No No No Sep 29 S informa informa informa informa 2015 tion in tion in tion in tion in 9:00 AM source source source source data data data data REASON INITIAL No No No No Sep 29 FOR FAMILY informa informa informa informa 2015 REQUEST tion in tion in tion in tion in 9:00 AM PLANNIN source source source source G VISIT data data data data SPECIME FEMALE No No No No Sep 29 N ENDOCER informa informa informa informa 2015 SOURCE VICAL tion in tion in tion in tion in 9:00 AM source source source source data data data data PREGNAN NO No No No No Sep 29 T informa informa informa informa 2015 tion in tion in tion in tion in 9:00 AM source source source source data data data data CHART [id number]- No No No No Sep 29 NUMBER [id number] informa informa informa informa 2015 tion in tion in tion in tion in 9:00 AM source source source source data data data data Chlamyd Pending No No No No Sep 29 ia informa informa informa informa 2015 trachom tion in tion in tion in tion in 9:00 AM atis source source source source rRNA data data data data [Presen ce] in Unspeci fied specime n by Probe & target amplifi cation method Neisser Pending No No No \.br\Sep 29 ia informa informa informa is 2015 gonorrh tion in tion in tion in report 9:00 AM oeae source source source contain rRNA data data data s [Presen patient ce] in Unspeci informa fied tion specime that n by must be Probe & target protect ed in amplifi accorda cation nce method with the Health Insuran ce Portabi lity and Account ability Act. XR WRIST RIGHT PA LATERAL AND OBLIQUE Observa Value Referen Units Interpr Notes Date tion ce etation Range FOUR No No No No Jan 18 VIEWS informa informa informa informa 2014 RIGHT tion in tion in tion in tion in 8:58 PM WRIST: source source source source data data data data 4\.br\\ .br\IND ICATION : Alterca tion with redness and pain distal lateral ulna.\. br\\.br \FINDIN GS:\.br \\.br\O sseous and articul ar structu res are normal. No soft tissue swellin g.\.br\ \.br\IM PRESSIO N:\.br\ 1. Negativ e exam. XR HAND RIGHT PA LATERAL AND OBLIQUE Observa Value Referen Units Interpr Notes Date tion ce etation Range XR HAND No No No No Jan 18 RIGHT informa informa informa informa 2014 PA tion in tion in tion in tion in 8:58 PM LATERAL source source source source AND data data data data OBLIQUE 4\.br\\ .br\COM PARISON : Right finger series 11/17/19 13.\.br \\.br\I NDICATI ON: Alterca tion. Pain and redness fifth digit.\ .br\\.b r\FINDI NGS:\.b r\\.br\ No acute osseous , articul ar or signifi cant soft tissue abnorma lity seen.\. br\\.br \IMPRES KARL:\. br\1. Negativ e exam. UA Observa Value Referen Units Interpr Notes Date tion ce etation Range UA Yellow No No No No b Color informa informa informa informa 2014 tion in tion in tion in tion in 2:58 PM source source source source data data data data UA Clear Clear No No No Oct 15 Appear informa informa informa 2013 tion in tion in ti in 2:58 PM source source source data data data UA Negativ Negativ No No No Oct 15 Glucose e e informa informa informa 2013 tion in tion in tion in 2:58 PM source source source data data data UA Negativ Negativ No No No Oct 15 Ketones e e informa informa informa 2013 tion in tion in tion in 2:58 PM source source source data data data UA Large Negativ No Abnorma No b Blood e informa l informa 2013 tion in tion in 2:58 PM source source data data UA pH 7.0 5.0 - No No No b 8.0 informa informa informa 2013 tion in tion in tion in 2:58 PM source source source data data data UA Negativ Negativ No No No b Protein e e informa informa informa 2013 tion in tion in tion in 2:58 PM source source source data data data UA 0.2 <=1 No No No b Urobili mg/dl mg/dl informa informa informa 2013 nogen tion in tion in tion in 2:58 PM source source source data data data UA Negativ Negativ No No No Oct 15 Nitrite e e informa informa informa 2014 tion in tion in tion in 2:58 PM source source source data data data UA Leuk Negativ Negativ No No No Oct 15 Est e e informa informa informa 2014 tion in tion in tion in 2:58 PM source source source data data data UA Spec 1.015 1.001 - No No No Oct 15 Grav 1.035 informa informa informa 2014 tion in tion in tion in 2:58 PM source source source data data data UA WBC 0-1 No /HPF No No Oct 15 informa informa informa 2014 tion in tion in tion in 2:58 PM source source source data data data UA RBC 10-15 No /HPF No No Oct 15 informa informa informa 2014 tion in tion in tion in 2:58 PM source source source data data data UA Trace No No No No Oct 15 Bacteri informa informa informa informa 2014 a tion in tion in tion in tion in 2:58 PM source source source source data data data data HCG QL-Kit Observa Value Referen Units Interpr Notes Date tion ce etation Range Beta Negativ No No No No Oct 15 hCG e informa informa informa informa 2014 Qual tion in tion in tion in tion in 2:50 PM source source source source data data data data Auto Diff Observa Value Referen Units Interpr Notes Date tion ce etation Range Neutrop 73.4 No % No No Oct 15 hils informa informa informa 2013 [#/volu tion in tion in tion in 2:35 PM me] in source source source Blood data data data by Automat ed count Lymphoc 20.8 No % No No Oct 15 ytes informa informa informa 2013 [#/volu tion in tion in tion in 2:35 PM me] in source source source Blood data data data by Automat ed count Monocyt 4.4 No % No No Oct 15 es informa informa informa 2013 [#/volu tion in tion in tion in 2:35 PM me] in source source source Blood data data data by Automat ed count Eos 1.2 No % No No Oct 15 Percent informa informa informa 2014 tion in tion in tion in 2:35 PM source source source data data data Baso 0.2 No % No No Feb 26 Percent informa informa informa 2013 tion in tion in tion in 2:35 PM source source source data data data Neut# 8.8 1.8 - x10(3)/ High No Feb 26 7.7 mcL informa 2013 tion in 2:35 PM source data Lymph# 2.5 0.6 - x10(3)/ No No Feb 26 4.8 mcL informa informa 2013 tion in tion in 2:35 PM source source data data [place]# 0.5 0.0 - x10(3)/ No No Feb 26 1.3 mcL informa informa 2013 tion in tion in 2:35 PM source source data data Eos# 0.1 0.0 - x10(3)/ No No Feb 26 0.5 mcL informa informa 2013 tion in tion in 2:35 PM source source data data Baso# 0.0 0.0 - x10(3)/ No No Feb 26 0.2 mcL informa informa 2013 tion in tion in 2:35 PM source source data data CBC Observa Value Referen Units Interpr Notes Date tion ce etation Range LEUKOCY 12.0 4.0 - x10(3)/ High No Feb 26 MIN 11.0 mcL informa 2013 tion in 2:35 PM source data Erythro 5.03 3.80 - x10(6)/ No No Feb 26 cytes 5.10 mcL informa informa 2013 [#/volu tion in tion in 2:35 PM me] in source source Blood data data by Automat ed count Hemoglo 15.0 12.0 - gm/dL No No Feb 26 bin 15.6 informa informa 2013 [Mass/v tion in tion in 2:35 PM olume] source source in data data Blood Hematoc 43.2 35.7 - % No No Feb 26 rit 45.9 informa informa 2013 [Volume tion in tion in 2:35 PM source source Fractio data data n] of Blood by Automat ed count Erythro 85.9 82.5 - fL No No Feb 26 cyte 99.8 informa informa 2013 mean tion in tion in 2:35 PM corpusc source source ular data data volume [Entiti c volume] by Automat ed count Erythro 29.8 27.0 - pg No No Oct 15 cyte 34.3 informa informa 2013 mean tion in tion in 2:35 PM corpusc source source ular data data hemoglo bin [Entiti c mass] by Automat ed count Erythro 34.7 32.1 - gm/dL No No Oct 15 cyte 35.3 informa informa 2013 mean tion in tion in 2:35 PM corpusc source source ular data data hemoglo bin concent ration [Mass/v olume] by Automat ed count Erythro 12.8 11.5 - % No No Oct 15 cyte 15.0 informa informa 2013 distrib tion in tion in 2:35 PM ution source source width data data [Ratio] by Automat ed count Platele 214 144 - x10(3)/ No No Oct 15 ts 423 mcL informa informa 2013 [#/volu tion in tion in 2:35 PM me] in source source Blood data data by Automat ed count MPV 7.3 6.8 - fL No No Oct 15 10.8 informa informa 2013 tion in tion in 2:35 PM source source data data XR FINGER RIGHT MINIMUM 2 VW Observa Value Referen Units Interpr Notes Date tion ce etation Range TEXT Three No No No No Nov 16 DIAGNOS views informa informa informa informa 2013 IS fourth tion in tion in tion in tion in 3:40 PM BATTERY digit source source source source right data data data data hand date 11/17/19 13 time 1538\.b r\\.br\ HISTORY : Trauma. \.br\\. br\FIND INGS: There is no fractur e or malalig nment of the right fourth digit.\ .br\\.b r\IMPRE SSION: No fractur e. CHLAMYDIA AND GONORRHEA TESTING Observa Value Referen Units Interpr Notes Date tion ce etation Range COLLECT WA No No No No Jul 5 OR informa informa informa informa 2012 tion in tion in tion in tion in 2:45 PM source source source source data data data data ETHNICI WHITE, No No No No Jul 24 TY NON-HIS informa informa informa informa 2012 PANIC tion in tion in tion in tion in 2:45 PM source source source source data data data data KIT 09-19-2 No No No No Jul 24 EXPIRAT 013 informa informa informa informa 2012 ION tion in tion in tion in tion in 2:45 PM DATE source source source source data data data data SYMPTOM NO No No No No Jul 24 S informa informa informa informa 2012 tion in tion in tion in tion in 2:45 PM source source source source data data data data REASON VOLUNTE No No No No Jul 24 FOR ER/MEDI informa informa informa informa 2012 REQUEST HYUN tion in tion in tion in tion in 2:45 PM PROBLEM source source source source data data data data SPECIME URINE No No No No Jul 24 N informa informa informa informa 2012 SOURCE tion in tion in tion in tion in 2:45 PM source source source source data data data data PREGNAN NO No No No No Jul 24 T informa informa informa informa 2012 tion in tion in tion in tion in 2:45 PM source source source source data data data data CHART NA No No No No Jul 24 NUMBER informa informa informa informa 2012 tion in tion in tion in tion in 2:45 PM source source source source data data data data Chlamyd NEGATIV No No No NEGATIV Jul 24 ia E informa informa informa E 2012 trachom tion in tion in tion in RESULT= 2:45 PM atis source source source WITHIN rRNA data data data NORMAL [Presen ce] in LIMITSP Unspeci OSITIVE fied specime RESULT= n by Probe & ABNORMA target LEQUIVO HYUN amplifi RESULT= cation method INDETER MINATEU NSATISF ACTORY RESULT= INVALID Neisser NEGATIV No No No NEGATIV Jul 24 ia E informa informa informa E 2012 gonorrh tion in tion in tion in RESULT= 2:45 PM oeae source source source WITHIN rRNA data data data NORMAL [Presen ce] in LIMITSP Unspeci OSITIVE fied specime RESULT= n by Probe & ABNORMA target LEQUIVO HYUN amplifi RESULT= cation method INDETER MINATEU NSATISF ACTORY RESULT= INVALID THE APTIMA COMBO 2 ASSAY IS NOT INTENDE D FOR THE EVALUAT ION OF SUSPECT EDSEXUA L ABUSE OR FOR OTHER MEDICO- LEGAL INDICAT IONS. FOR THOSE PATIENT S FORWHOM A FALSE POSITIV E RESULT MAY HAVE ADVERSE PSYCHO- SOCIAL IMPACT, THE CDCR[facility] MMENDS RETESTI NG. COMMENT MOD TO No No No PER Jul 24 INFO CHANGE informa informa informa MANOJ 2012 COLLECT tion in tion in tion in COHD 2:45 PM ION source source source DRB 03/16/12 data data data TO 012\.br 07/24/12 \This report contain s patient informa tion that must be protect ed in [facility] with the Health Insuran ce Portabi lity and Account ability Act. HEPATITIS C VIRUS SCREEN Observa Value Referen Units Interpr Notes Date tion ce etation Range IV DRUG NO No No No No Jul 24 USER informa informa informa informa 2012 tion in tion in tion in tion in 2:45 PM source source source source data data data data MAN WHO NO No No No No Jul 24 SLEEPS informa informa informa informa 2012 WITH tion in tion in tion in tion in 2:45 PM MEN source source source source data data data data HEPATIT NON-RADHA No No No METHOD Jul 24 IS C CTIVE informa informa informa OF 2012 VIRUS tion in tion in tion in ANALYSI 2:45 PM SCREEN source source source S: data data data EIANORM AL RANGE: NON REACTIV E\.br\T his report contain s patient informa tion that must be protect ed in [facility] with the [facility] [employer] ce Portabi lity and Account ability Act. Treponema pallidum IgG Ab [Presence] in Serum by Immunoassay Observa Value Referen Units Interpr Notes Date tion ce etation Range COLLECT WA No No No No Jul 24 OR informa informa informa informa 2012 tion in tion in tion in tion in 2:45 PM source source source source data data data data ETHNICI WHITE No No No No Jul 24 TY informa informa informa informa 2012 tion in tion in tion in tion in 2:45 PM source source source source data data data data PURPOSE DIAGNOS No No No No Jul 24 OF TIC informa informa informa informa 2012 EXAM tion in tion in tion in tion in 2:45 PM source source source source data data data data SPECIME BLOOD No No No No Jul 24 N informa informa informa informa 2012 SOURCE tion in tion in tion in tion in 2:45 PM source source source source data data data data CHART NA No No No No Jul 24 NUMBER informa informa informa informa 2012 tion in tion in tion in tion in 2:45 PM source source source source data data data data Trepone NON-RADHA No No No METHOD Jul [address] informa informa informa OF 2012 pallidu tion in tion in tion in ANALYSI 2:45 PM m IgG source source source S: Ab data data data EIANORM [Presen AL ce] in RANGE: Serum NON-RADHA by CTIVE\. Immunoa br\This ssay report contain s patient informa tion that must be protect ed in accorda nce with the Health Ins[employer] ce Portabi lity and Account ability Act. Treponema pallidum IgG Ab [Presence] in Serum by Immunoassay Observa Value Referen Units Interpr Notes Date tion ce etation Range COLLECT WA No No No No Jul 24 OR informa informa informa informa 2012 tion in tion in tion in tion in 2:45 PM source source source source data data data data ETHNICI WHITE No No No No Jul 24 TY informa informa informa informa 2012 tion in tion in tion in tion in 2:45 PM source source source source data data data data PURPOSE DIAGNOS No No No No Jul 24 OF TIC informa informa informa informa 2012 EXAM tion in tion in tion in tion in 2:45 PM source source source source data data data data SPECIME BLOOD No No No No Jul 24 N informa informa informa informa 2012 SOURCE tion in tion in tion in tion in 2:45 PM source source source source data data data data CHART NA No No No No Jul 24 NUMBER informa informa informa informa 2012 tion in tion in tion in tion in 2:45 PM source source source source data data data data Trepone Pending No No No \.brJul 24 ma informa informa informa is 2012 pallidu tion in tion in tion in report 2:45 PM m IgG source source source contain Ab data data data s [Presen patient ce] in Serum informa by tion Immunoa that ssay must be protect ed in [facility] with the [employer] Portabi lity and Account ability Act. HEPATITIS C VIRUS SCREEN Observa Value Referen Units Interpr Notes Date tion ce etation Range IV DRUG NO No No No No Jul 24 USER informa informa informa informa 2012 tion in tion in tion in tion in 2:45 PM source source source source data data data data MAN WHO NO No No No No Jul 24 SLEEPS informa informa informa informa 2011 WITH tion in tion in tion in tion in 2:45 PM MEN source source source source data data data data HEPATIT Pending No No No \.brJul 24 IS C informa informa informa is 2011 VIRUS tion in tion in tion in report 2:45 PM SCREEN source source source contain data data data s patient informa tion that must be protect ed in [facility] with the [employer] Portabi lity and Account ability Act. CT ABDOMEN PELVIS W CONTRAST Observa Value Referen Units Interpr Notes Date ti ce etation Range TEXT CT No No No No Jul 01 DIAGNOS ABDOMEN informa informa informa informa 2011 IS AND tion in tion in tion in tion in 4:30 PM BATTERY PELVIS, source source source source WITH data data data data CONTRAS T,Jul 01, 2012 04:30:0 7 PMINDIC ATIONS: Abdomin al pain.FI NDINGS: Abdomen and pelvis CT utilizi ng 75 mL Isovue- 370 intrave nouscon trast materia l andoral contras t.VICTORINA RISON: Ultraso und pelvis June 06, 2012The liver is normal in [facility]. The spleen, pancrea s, adrenal glands, and kidneys arenorm al. The gallbla dder is normal. There is no retrope ritonea l adenopa thy.The re is mild thicken ing of the mucosa of the descend ing colon and sigmoid origin, consist entwith colitis . Remaind er of small and large bowel are normal. The pelvis shows copious fluid within the depende nt pelvis. The ovaries are normal by CTcrite adam. The fallopi an tubes, and the paramet rial tissues are hyperem icwitho ut focal abscess like fluid collect ion. No adenopa thy. The inguina l regions are intact. IMPRESS ION:1. Fluid within the pelvis may be related to pelvic inflamm atory disease ,and correla tion isneces daniela.2. Mucosal thicken ing of the distal descend ing colon and sigmoid isconsi stent with colitis .The normalc y of the remaind er of the colon makes antibio tic related colitis less likely but notexcl uded. By history , the patient does have diarrhe a. US PELVIS AND TRANSVAGINAL NON OB COMPLETE Observa Value Referen Units Interpr Notes Date tion ce etation Range TEXT ADDENDU No No No No Jun 06 DIAGNOS M:Dr. krista velasco informkwame 2011 IS [place] tion in tion in tion in tion in 11:10 BATTERY asked source source source source AM for the data data data data examina tion to be reviewe d. Abdomen /pelvic CTrepor t from March noted a right adnexal mass and this pelvic ultraso und dated June 06, 2012 noted acomple x left ovarian mass.Th wendi 2 examina tions occurre d approxi mately 2-1/2 months apart. On reviewo f CT, a 5 cm complex appeari ng cystic lesion was noted within the right adnexa. This lesionr esolved between and June 06 and therefo re is most consist ent with a complex physiol ogical cyst and/or aninfla mmatory /infect ious process which improve d. Ultraso und imagesd emonstr ate a normals onograp hic appeara nce of the right ovary. Additio cesar, ultraso und datedOc tober 2011dem onstrat es a 4.1 cm complex left ovarian mass. Left ovary not wellvis ualized on priorno ncontra st CT from March 20, 2012 and therefo re, it cannot be determi nedwhet her this is a newor chronic lesion. A short-t erm follow- up pelvic ultraso und in 6 weekswo uld be benefic ial toasses s for resolut ion of this left ovarian mass.CO LEWIS. CODE FOLLOWU P.US PELVIS AND TRANSVA GINAL NON OB COMPLET E Jun 06, 2012 11:10:4 0 AMHISTO RY: 620.2-O ther and unspeci fied ovarian cyst-IC D-9-CM. Transab dominal transva ginal imaging perform ed.COMP ARISON: 2 CT.Uter us is 8.1 x 3.5 x 5.2 cm with endomet rial thickne ss 7 mm. The rightov yadi is 4 x 2.2 x 3.2cm the left ovary is 5.5 x 4.3 x 3.9 cm. The there is a complex leftova dustin mass predomi nantlyc ystic but with septati ons and low level echoes measuri ng 4.1 x 3.7 x 3.6cm. Additio nallyth ere is a moderat e amount of free periton eal fluid.I MPRESSI ON: Complex left ovarian mass with moderat e amount of freeper itoneal fluid. PID shouldb e conside red. Tubo-ov stacey abscess cannot be exclude d. XR ACUTE ABDOMEN SUPINE ERECT AND OR DECUBITUS W 1 VW CHEST Observa Value Referen Units Interpr Notes Date tion ce etation Range TEXT XR No No No No May 25 DIAGNOS ACUTE informa informa informa informa 2011 IS ABDOMEN tion in tion in tion in tion in 10:57 BATTERY SUPINE source source source source AM ERECT data data data data AND OR DECUBIT US W 1 VW CHEST May 25, 201210: 57:44 AMHISTO RY: -ABDOMI NAL PAIN.FI NDINGS: The heart is normal in size. The lungs are clear of infiltr ate.No abnorma l mediast inal mass or adenopa thy is seen.IM PRESSIO N: Normal Chest.N onobstr uctive bowel gas pattern . No organom egaly, soft tissue mass orpatho logicca lcifica tions.I MPRESSI ON: Nonspec ific abdomen CT ABDOMEN PELVIS WO ORAL OR IV CONTRAST Observa Value Referen Units Interpr Notes Date tion ce etation Range TEXT CT No No No No Mar 20 DIAGNOS ABDOMEN informa informa informa informa 2011 IS PELVIS tion in tion in tion in tion in 8:03 AM BATTERY WO source source source source ORAL OR data data data data IV CONTRAS T Mar 20, 2012 08:03:4 4 AMHISTO RY: -ABDOMI NAL PAINSca ns were perform ed from the upper margins the kidneys the base urinary bladder without oralor intrave nous contras t. There are no previou s CT scans at this hospita l.No renal or uretera l calculu s is seen. There is no hydrone phrosis orhydro ureter. Thevisu alized portion s of the unenhan clark liver, spleen, gallbla dder andpanc reas appear normal. Anormal appendi x is seen. There is a moderat e amount of free fluid in thepelv is. There is acomple x appeari ng cystic lesion in the right adnexal region, 5 cm ingreat est dimensi on. Thereis a small amount of air within the urinary bladder .IMPRES KARL: No evidenc e of urinary tract calculu s or obstruc tion. Complex right adnexal cyst,mo st likely ovarian in origin with a moderat e amount of free fluid in thepelv is. I underst andthat the clinica l impress ion is pelvic inflamm atory disease . Followu ppelvic ultraso und may beusefu l. There is a small amount of air within the urinary bladder . Thismay be seconda ry torecen t cathete rizatio n. If cathete rizatio n has not occurre d, theposs ibility of a gas-for minginf ection or a fistula must be conside red. I called the report to Dr.Fran lorenzo at 8:25 a.m. on 012. CHLAMYDIA AND GONORRHEA TESTING Observa Value Referen Units Interpr Notes Date tion ce etation Range COLLECT WA No No No No Mar 16 OR informa informa informa informa 2012 tion in tion in tion in tion in 2:45 PM source source source source data data data data ETHNICI WHITE, No No No No Mar 16 TY NON-HIS informa informa informa informa 2011 PANIC tion in tion in tion in tion in 2:45 PM source source source source data data data data KIT 2 No No No No Mar 16 EXPIRAT 013 informa informa informa informa 2012 ION tion in tion in tion in tion in 2:45 PM DATE source source source source data data data data SYMPTOM NO No No No No Mar 16 S informa informa informa informa 2012 tion in tion in tion in tion in 2:45 PM source source source source data data data data REASON VOLUNTE No No No No Mar 16 FOR ER/MEDI informa informa informa informa 2012 REQUEST HYUN tion in tion in tion in tion in 2:45 PM PROBLEM source source source source data data data data SPECIME URINE No No No No Mar 16 N informa informa informa informa 2012 SOURCE tion in tion in tion in tion in 2:45 PM source source source source data data data data PREGNAN NO No No No No Mar 16 T informa informa informa informa 2012 tion in tion in tion in tion in 2:45 PM source source source source data data data data CHART NA No No No No Mar 16 NUMBER informa informa informa informa 2012 tion in tion in tion in tion in 2:45 PM source source source source data data data data Chlamyd NEGATIV No No No NEGATIV Mar 16 ia E informa informa informa E 2012 trachom tion in tion in tion in RESULT= 2:45 PM atis source source source WITHIN rRNA data data data NORMAL [Presen ce] in LIMITSP Unspeci OSITIVE fied specime RESULT= n by Probe & ABNORMA target LEQUIVO HYUN amplifi RESULT= cation method INDETER MINATEU NSATISF ACTORY RESULT= INVALID Neisser NEGATIV No No No NEGATIV Mar 16 ia E informa informa informa E 2012 gonorrh tion in tion in tion in RESULT= 2:45 PM oeae source source source WITHIN rRNA data data data NORMAL [Presen ce] in LIMITSP Unspeci OSITIVE fied specime RESULT= n by Probe & ABNORMA target LEQUIVO HYUN amplifi RESULT= cation method INDETER MINATEU NSATISF ACTORY RESULT= INVALID THE APTIMA COMBO 2 ASSAY IS NOT INTENDE D FOR THE EVALUAT ION OF SUSPECT EDSEXUA L ABUSE OR FOR OTHER MEDICO- LEGAL INDICAT IONS. FOR THOSE PATIENT S FORWHOM A FALSE POSITIV E RESULT MAY HAVE ADVERSE PSYCHO- SOCIAL IMPACT, THE CDCRECO MMENDS RETESTI NG.\.br \This report contain s patient informa tion that must be protect ed in accorda nce with the Health Insuran ce Portabi lity and Account ability Act. CHLAMYDIA AND GONORRHEA TESTING Observa Value Referen Units Interpr Notes Date tion ce etation Range COLLECT WA No No No No Mar 16 OR informa informa informa informa 2012 tion in tion in tion in tion in 2:45 PM source source source source data data data data ETHNICI WHITE, No No No No Mar 16 TY NON-HIS informa informa informa informa 2012 PANIC tion in tion in tion in tion in 2:45 PM source source source source data data data data KIT 09-19-2 No No No No Mar 16 EXPIRAT 013 informa informa informa informa 2012 ION tion in tion in tion in tion in 2:45 PM DATE source source source source data data data data SYMPTOM NO No No No No Mar 16 S informa informa informa informa 2012 tion in tion in tion in tion in 2:45 PM source source source source data data data data REASON VOLUNTE No No No No Mar 16 FOR ER/MEDI informa informa informa informa 2012 REQUEST HYUN tion in tion in tion in tion in 2:45 PM PROBLEM source source source source data data data data SPECIME URINE No No No No Mar 16 N informa informa informa informa 2012 SOURCE tion in tion in tion in tion in 2:45 PM source source source source data data data data PREGNAN NO No No No No Mar 16 T informa informa informa informa 2012 tion in tion in tion in tion in 2:45 PM source source source source data data data data CHART NA No No No No Mar 16 NUMBER informa informa informa informa 2012 tion in tion in tion in tion in 2:45 PM source source source source data data data data Chlamyd Pending No No No No Mar 16 ia informa informa informa informa 2012 trachom tion in tion in tion in tion in 2:45 PM atis source source source source rRNA data data data data [Presen ce] in Unspeci fied specime n by Probe & target amplifi cation method Neisser Pending No No No \.br\Mar 16 ia informa informa informa is 2011 gonorrh tion in tion in tion in report 2:45 PM oeae source source source contain rRNA data data data s [Presen patient ce] in Unspeci informa fied tion specime that n by must be Probe & target protect ed in amplifi accorda cation nce method with the Health Ins[employer] ce Portabi lity and Account ability Act.
--- OUTSIDE RECORDS SUMMARY | 2017-05-30 06:36 | External Medical Summary Rpt ---
[...] MAY HAVE ADVERSE PSYCHO- SOCIAL IMPACT, [facility] RET[facility]I NG.\.br \This report contain s [...] OR RODRIGES, informa informa informa informa 2015 [employer] tion in tion in tion in tion [...] MAY HAVE ADVERSE PSYCHO- SOCIAL IMPACT, [facility] MM[facility] RETESTI NG.\.br \This report contain s patient informa tion that must be protect ed in accorda nce with the Health Ins[employer] ce Portabi lity and Account ability Act. CHLAMYDIA AND GONORRHEA TESTING Observa Value Referen Units Interpr Notes Date tion ce etation Range COLLECT M.F. 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 tion in tion in tion in tion [...] in 2:35 PM source source data data [place]# 0.5 0.0 - x10(3)/ No No Feb [...] tion that must be protect ed in [facility] with the Health Insuran ce Portabi lity [...] tion that must be protect ed in [facility] with the Health Ins[employer] ce Portabi lity [...] that ssay must be protect ed in [facility] with the [facility] Ins[employer] Portabi lity and [...] tion that must be protect ed in [facility] with the Health Ins[employer] Portabi lity and [...] June 06, 2012The liver is normal in [facility]. The spleen, pancrea s, adrenal glands, [...]
== END 2017-05-07 20:51 | disposition home or self-care (01) ==
LOC: UTC 17:07
PROVIDERS: Nurse Practitioner Family
PROC: 0H9KXZZ Drainage of Right Lower Leg Skin, External Approach (ICD-10-PCS; principal; 2017-05-07)
DX: L02.415 Cutaneous abscess of right lower limb (principal); L03.115 Cellulitis of right lower limb; F17.210 Nicotine dependence, cigarettes, uncomplicated

== ENCOUNTER → 2017-08-01 | Outpatient (CLI) | payer MEDICAID ==
[2017-08-01 15:49] LABS: LYMPH # 4.2 K/mm3 (0.7-4.5); LYMPH % 35.2 % (10-50.0)
[2017-08-01 16:06] LABS: BILIRUBIN, INDIRECT 0.13 mg/dL (0-0.9)
[2017-08-01 21:05] LABS: ABO BLOOD TYPE O; RH BLOOD TYPE NEGATIVE
[2017-08-03 07:39] LABS: HIV Screen 4th Generation wRfx Non Reactive (Non Reactive)
[2017-08-03 08:44] LABS: HBsAg Screen Negative (Negative); Hep C Virus Ab >11.0 (0.0-0.9); Rapid Plasma Reagin, Quant Non Reactive (NonRea<1:1); Rubella Antibodies, IgG 3.58 index (Immune >0.99)
== END ==
LOC: LAB 14:25
PROVIDERS: Nurse Practitioner Obstetrics & Gynecology
DX: Z34.80 Encounter for supervision of other normal pregnancy, unspecified trimester (principal)
CPT/HCPCS: G0432